=== PATIENT | female | born 1935 | race Caucasian/White ===

== ENCOUNTER 2019-05-09 09:54 | Outpatient (CLI) | payer MEDICARE, SELFPAY ==
--- NOTE | ~2019-05-09 | XR_ITS ---
EXAMINATION: XR abdomen/kub 1V INDICATION: Right kidney stone TECHNIQUE: Supine views of the abdomen were obtained on 2 radiographs. COMPARISON: 11/01/2018 FINDINGS: Bowel contents project over the kidneys limiting sensitivity for renal stones. There is a 1 .3 cm stone or cluster of stones projecting in the lower pole of the right kidney. Stones measuring 7 mm and 8 mm project in the expected location of the right proximal ureter at the level of the L4 beatris tebral body.. No definite left-sided stones are identified. There are phleboliths of the pelvis. The bowel gas pattern is normal. A moderate volume of colonic stool is present. There is moderate lumbar spondylosis and moderate bilateral hip osteoarthritis. IMPRESSION: 1. Right nephrolithiasis with possible stones in the right proximal ureter. Reviewed, dictated and finalized at location A. 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
== END 2019-05-09 09:55 | disposition home or self-care (01) ==
LOC: ANHIMG 09:57
PROVIDERS: PCP Internal Medicine; Visit Provider Urology
DX: N20.0 Calculus of kidney (principal)
CPT/HCPCS: 74018

== ENCOUNTER 2019-05-10 11:47 | Outpatient (CLI) | payer MEDICARE, SELFPAY ==
--- NOTE | ~2019-05-10 | CT_ITS ---
EXAMINATION: CT abdomen pelvis wo con DATE: 05/10/2019 12:10 INDICATION: Right kidney stone. TECHNIQUE: Computed tomography (CT) of the abdomen and pelvis was performed without intravenous contr ast. Automated exposure control and iterative reconstruction technique were employed. The dose-length product was 1075.00 mGy-cm. COMPARISON: CT abdomen and pelvis 03/03/2018 FINDINGS: The visualized portions of the lung bases demonstrate mild atelectasis. No pleural effusion . The heart size is normal. There are coronary artery calcifications. No pericardial effusion. The li beatris demonstrates a nodular surface contour, consistent with cirrhosis. There is a 14 mm cyst in the l iver. There are gallstones in the gallbladder, which is normal in size. The spleen, pancreas, and adr enal glands are normal. There are least 9 stones in right kidney measuring up to 9 mm. There is mild right hydronephrosis. There are two 5 mm stones in proximal right ureter. There are two 3 mm stones i n left kidney. There is an umbilical hernia containing fat. There are no dilated loops of bowel. The appendix is normal. There are no pathologically enlarged lymph nodes. There is no free intraperitonea l fluid. There is lumbar levocurvature and severe spondylosis. IMPRESSION: 1. Two 5 mm stones in proximal right ureter with mild right hydronephrosis. 2. Bilateral nonobstructing kidney stones. 3. Cirrhosis of the liver. Reviewed, dictated and finalized at location A. GRAD RN
== END 2019-05-10 11:48 | disposition home or self-care (01) ==
LOC: ANHIMG 11:49
PROVIDERS: PCP Internal Medicine; Visit Provider Urology
DX: N13.2 Hydronephrosis with renal and ureteral calculous obstruction (principal); K74.60 Unspecified cirrhosis of liver
CPT/HCPCS: 74176

== ENCOUNTER 2019-05-15 14:22 | Outpatient (CLI) | payer MEDICARE, SELFPAY ==
--- NOTE | 2019-05-15 14:29 | ECG_ITS ---
Measurements Intervals [place] Rate: 75 P: 249 [place]: 181 QRS: -42 QRSD: 114 T: 9 QT: 345 QTc: 387 Interpretive Statements SINUS RHYTHM LEFT AXIS DEVIATION INTRAVENTRICULAR CONDUCTION DELAY DELAYED PRECORDIAL R/S TRANSITION VOLTAGE CRITERIA FOR LVH BORDERLINE T WAVE ABNORMALITY- INFERIOR LEADS BASELINE ARTIFACT- I, III, AVR, AVL, AVF, V1-V6 BORDERLINE ECG Electronically Signed On 05-15-2019 14:56:00 RABBLER by Leonel Jimenez D.O.
[2019-05-15 15:23] LABS: Blood Urea Nitrogen 24 mg/dL (7-17); Calcium 10.2 mg/dL (8.4-10.2); Carbon Dioxide 23 mmol/L (22-30); Chloride 106 mmol/L (98-107); Estimated Glomerular Filt Rate 23; Glucose 109 mg/dL (65-105); Potassium 4.4 mmol/L (3.4-5.0); Sodium 139 mmol/L (137-145)
[2019-05-15 15:24] LABS: INR 1.1; Partial Thromboplastin Time 30.2 SECONDS (22.3-36.8); Prothrombin Time 13.9 Seconds (11.1-14.7)
== END 2019-05-15 14:23 | disposition home or self-care (01) ==
LOC: ANHSURGERY 14:29
PROVIDERS: Anesthesiology; PCP Internal Medicine; Visit Provider Urology
DX: N20.0 Calculus of kidney (principal); E11.9 Type 2 diabetes mellitus without complications; I45.9 Conduction disorder, unspecified
CPT/HCPCS: 36415; 80048; 85610; 85730; 93005

== ENCOUNTER 2019-05-19 00:57 | Day surgery (SDC) | payer MEDICARE, SELFPAY ==
[2019-05-15 09:16] VITALS: BMI 36.6
[2019-05-19] VITALS (7 sets, daily range): BP systolic 123–156; BP diastolic 57–81; PULSE 60–81; RESP 13–20; TEMP 36.3–37.2; O2SAT 97–100
--- NOTE | ~2019-05-19 | XR_ITS ---
EXAMINATION: XR retrograde pyelo w/stent RT DATE: 05/19/2019 14:33 INDICATION: Right internal ureteral stent placement TECHNIQUE: Fluoroscopic images from a right internal ureteral stent placement are submitted for laura sinclair 11 seconds of fluoroscopy time. 4 fluoroscopic images. FINDINGS: There is a right double-J internal ureteral stent projecting in expected position, with proximal [place] loop at the level of the renal pelvis. The distal cope loop is not visualized.. IMPRESSION: 1. Right internal ureteral stent placement. Please refer to real-time procedural findings for king moore. Reviewed, dictated and finalized at location B. 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 Right internal ureteral stent placement. Please refer to real-time procedu ral findings for details.
--- NOTE | ~2019-05-19 | XR_ITS ---
EXAMINATION: XR abdomen/kub 1V DATE: 05/19/2019 08:42 INDICATION: Right kidney stone. TECHNIQUE: A supine view of the abdomen on 2 radiographs was obtained. COMPARISON: Abdomen radiographs 05/09/2019, CT abdomen and pelvis 05/10/2019 FINDINGS: There are no dilated loops of bowel. There are phleboliths in the pelvis. There are 5 mm an d 6 mm stones in distal right ureter. There are clusters of stones in right kidney measuring up to 8 mm. IMPRESSION: 1. Stones in the right kidney and distal right ureter. Reviewed, dictated and finalized at location A. 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
--- NOTE | 2019-05-19 09:29 | WPDHPUPDATE1 ---
History and Physical Update Update Date/Time: 05/19/19 09:29 History and Physical has been reviewed, including an updated exam of the patient. There are NO changes in the patient's condition. Risks, benefits, and alternatives have been discussed and questions answered. Patient agrees to proceed with procedure.
[2019-05-19 09:37] LABS: Glucose Point of Care 113 (65-105)
--- NOTE | 2019-05-19 09:45 | SUR.PREOP ---
0940- PT STATED CIPRO ALLERGY IS JUST GI UPSET. SPOKE WITH DR. CHADWICK AND HE STATED TO ORDER LEVOFLOXACIN 500 MG IV FOR ANTIBOTICS.
--- NOTE | 2019-05-19 09:58 | WPDANESEPP ---
Anes - Eval Pre Procedure Procedure: Operation Date: 05/19/19 10:30 Proposed Procedures p Right Ureteral Extracorporeal Shock Wave Lithotripsy, Possible Stent - Ten Juárez MD Date/Time: 05/19/19 09:58 Pre Op Diagnosis: Right Ureteral Stone Patient Data Age: 84 Gender: F Height: 1.63 m Weight: 96 kg Last Vital Signs Temp 37.2 C 05/19/19 09:36 Pulse 78 05/19/19 09:36 Resp 20 05/19/19 09:36 BP 141/81 H 05/19/19 09:36 Pulse Ox 100 05/19/19 09:36 Allergies Allergy/AdvReac Type Severity Reaction Status Date / Time ciprofloxacin Allergy Unknown Hives Verified 05/15/19 09:30 iodine Allergy Unknown hives Verified 05/15/19 09:30 Penicillins Allergy Unknown Hives Verified 05/15/19 09:30 prednisone Allergy Unknown SEE COMMENT Verified 05/15/19 09:30 Sulfa (Sulfonamide Allergy Unknown Hives Verified 05/15/19 09:30 Antibiotics) sulfamethizole Allergy Unknown Hives Verified 05/15/19 09:30 trimethoprim Allergy Unknown Hives Verified 05/15/19 09:30 Contrast Media Allergy Unknown Hives Uncoded 05/15/19 09:30 Home Medications Medication Instructions Recorded Confirmed Type losartan 25 mg tablet 25 mg PO DAILY #90 tablet 02/21/19 05/19/19 Rx metformin 500 mg tablet,extended 500 mg PO .twice a day #180 tablet 03/29/19 05/19/19 Rx release 24hr aspirin [Aspir-81] 81 mg PO DAILY 05/15/19 05/19/19 History coenzyme Q10 [CoQ-10] 200 mg PO DAILY 05/15/19 05/19/19 History glucos sul [id number]-Mn 2 cap PO DAILY 05/15/19 05/19/19 History [Glucosamine Chondroitin] inulin [Fiber Gummies] 2 g PO DAILY 05/15/19 05/19/19 History levothyroxine 50 mcg PO DAILY 05/15/19 05/19/19 History lutein-zeaxanthin 1 cap PO DAILY 05/15/19 05/19/19 History metoprolol succinate [Toprol XL] 50 mg PO DAILY 05/15/19 05/19/19 History montelukast [Singulair] 10 mg PO HS 05/15/19 05/19/19 History multivitamin 1 tablet PO DAILY 05/15/19 05/19/19 History niacin 500 mg PO DAILY 05/15/19 05/19/19 History omeprazole magnesium [Prilosec OTC] 20 mg PO DAILY 05/15/19 05/19/19 History simvastatin [Zocor] 20 mg PO HS 05/15/19 05/19/19 History Laboratory Tests 05/19/19 09:33 POC Capillary Glucose 113 mg/dl H mg/dl (65-105) ECG: Date of Service: 05/15/19 Procedure(s): [place] 12 lead EKG Accession Number(s): [id number] cc: ~ Measurements Intervals [place] Rate: 75 P: 249 [place]: 181 QRS: -42 QRSD: 114 T: 9 QT: 345 QTc: 387 Interpretive Statements SINUS RHYTHM LEFT AXIS DEVIATION INTRAVENTRICULAR CONDUCTION DELAY DELAYED PRECORDIAL R/S TRANSITION VOLTAGE CRITERIA FOR LVH BORDERLINE T WAVE ABNORMALITY- INFERIOR LEADS BASELINE ARTIFACT- I, III, AVR, AVL, AVF, V1-V6 BORDERLINE ECG Electronically Signed On 05-15-2019 14:56:00 BEARING RING ASSEMBLER by Leonel Jimenez D.O. 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
--- NOTE | 2019-05-19 11:03 | WPDANESEPPF ---
Anes - Initial Pre Proc Eval Procedure: Operation Date: 05/19/19 10:30 Proposed Procedures p Right Ureteral Extracorporeal Shock Wave Lithotripsy, Possible Stent - Ten Juárez MD Date/Time: 05/19/19 11:03 Surgeon: Ten Juárez MD Pre Op Diagnosis: Right Ureteral Stone Patient Data Age: 84 Gender: F Height: 5 ft 4 in Weight: 96 kg Last Vital Signs Temp 98.9 F 05/19/19 09:36 Pulse 78 05/19/19 09:36 Resp 20 05/19/19 09:36 BP 141/81 H 05/19/19 09:36 Pulse Ox 100 05/19/19 09:36 Allergies Allergy/AdvReac Type Severity Reaction Status Date / Time ciprofloxacin Allergy Unknown Hives Verified 05/15/19 09:30 iodine Allergy Unknown hives Verified 05/15/19 09:30 Penicillins Allergy Unknown Hives Verified 05/15/19 09:30 prednisone Allergy Unknown SEE COMMENT Verified 05/15/19 09:30 Sulfa (Sulfonamide Allergy Unknown Hives Verified 05/15/19 09:30 Antibiotics) sulfamethizole Allergy Unknown Hives Verified 05/15/19 09:30 trimethoprim Allergy Unknown Hives Verified 05/15/19 09:30 Contrast Media Allergy Unknown Hives Uncoded 05/15/19 09:30 Home Medications Medication Instructions Recorded Confirmed Type losartan 25 mg tablet 25 mg PO DAILY #90 tablet 02/21/19 05/19/19 Rx metformin 500 mg tablet,extended 500 mg PO .twice a day #180 tablet 03/29/19 05/19/19 Rx release 24hr aspirin [Aspir-81] 81 mg PO DAILY 05/15/19 05/19/19 History coenzyme Q10 [CoQ-10] 200 mg PO DAILY 05/15/19 05/19/19 History glucos sul [id number]-Mn 2 cap PO DAILY 05/15/19 05/19/19 History [Glucosamine Chondroitin] inulin [Fiber Gummies] 2 g PO DAILY 05/15/19 05/19/19 History levothyroxine 50 mcg PO DAILY 05/15/19 05/19/19 History lutein-zeaxanthin 1 cap PO DAILY 05/15/19 05/19/19 History metoprolol succinate [Toprol XL] 50 mg PO DAILY 05/15/19 05/19/19 History montelukast [Singulair] 10 mg PO HS 05/15/19 05/19/19 History multivitamin 1 tablet PO DAILY 05/15/19 05/19/19 History niacin 500 mg PO DAILY 05/15/19 05/19/19 History omeprazole magnesium [Prilosec OTC] 20 mg PO DAILY 05/15/19 05/19/19 History simvastatin [Zocor] 20 mg PO HS 05/15/19 05/19/19 History Laboratory Tests 05/19/19 09:33 POC Capillary Glucose 113 mg/dl H mg/dl (65-105) Patient hx anesthesia problems: none Family hx anesthesia problems: none PMFSH Past Medical History Medical History (Updated 05/19/19 @ 10:00 by Lucas Moss MD) Abnormal CT scan, chest Body mass index (bmi) 37.0-37.9, adult (05/03/18) Body mass index (bmi) 38.0-38.9, adult (10/06/18) Body mass index (bmi) 39.0-39.9, adult (09/03/16) CAD (coronary artery disease) 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 Diabetic polyneuropathy associated with type 2 diabetes mellitus Essential (primary) hypertension Foot infection Gastro-esophageal reflux disease with esophagitis Hx of myocardial infarction FEB 2015 Hypercalcemia Hypothyroidism, unspecified Mixed hyperlipidemia Unspecified asthma, uncomplicated Surgical History Surgical History (Updated 05/19/19 @ 10:00 by Lucas Moss MD) History of coronary artery stent placement X2 Family History Family History (Updated 12/23/17 @ 09:07 by DOCTOR UNKNOWN) Father Family history of malignant neoplasm, Onset Age: 77 Family history of blood dyscrasia, Onset Age: 77 Family history of anemia, Onset Age: 77 Patient's father is , Onset Age: 77 Mother Family history of Alzheimer's disease, Onset Age: 82 Family history of heart disease in male family member before age 55, Onset Age: 82 Patient's mother is , Onset Age: 82 Grandparent Cerebrovascular accident, Onset Age: 78 Other Carcinoma of colon Family history of cardiovascular disease Hypertension Social History Social History Smoking status: Never smoker Second hand tobacco smoke exposur
[2019-05-19] MEDS: levoFLOXacin 500 MG/D5W 100 ML 500 MG/100 ML BAG 100 MG IVPB (11:27)
--- NOTE | 2019-05-19 12:00 | PM.PROC ---
Procedure Note - Detailed Date of procedure: 05/19/19 Pre-op diagnosis: Right Ureteral Stone Post-op diagnosis: same Procedure performed: Cystoscopy, right retrograde pyelogram, right ureteroscopy with holmium laser of stone, stone extraction, right ureteral stent placement 4.8 Stateless contour Description of procedure: Patient was taken to the operative suite and correctly identified. Once general anesthesia was obtained she was placed in a dorsal lithotomy position prepped and draped usual sterile fashion. Twenty-two Stateless scope inserted into the bladder. There were no tumors noted. The right ureteral orifice was cannulated with a guidewire. A rigid ureteral scope was inserted. Patient had approximately 3 stone sitting in the distal ureter. There were 2 large to retrieve in 1 piece. Using a 273 micron fiber we fragmented the stone into multiple pieces. These were retrieved and sent for analysis. Pyelogram had been performed to confirm placement of the stent. A 4.8 Stateless stent was then placed with the proximal end coiled in the renal pelvis distal and in the bladder. 2% viscous lidocaine was inserted into the urethra and patient was taken to recovery room stable condition. She will follow up in about a week's time to 10 days with a KUB. Decision will need to be made to what to do with residual stones in the kidney. Anesthesia: GLMA Surgeon: Ten Juárez MD Drains: Yes Packing: No Pathology: yes Complications: No immediate complications Condition: stable Disposition: PACU
[2019-05-19] MEDS: LACTATED RINGERS 1,000 ML 30 ML IV CONT ×2 (12:06)
[2019-05-19 12:17] LABS: Glucose Point of Care 108 (65-105)
== END 2019-05-19 13:40 | disposition home or self-care (01) ==
PROVIDERS: PCP Internal Medicine; Visit Provider Urology
PROC: (CPT 50590; principal; 2019-05-19 10:30)
DX: N20.1 Calculus of ureter (principal); E11.3213 Type 2 diabetes mellitus with mild nonproliferative diabetic retinopathy with macular edema, bilateral; E11.42 Type 2 diabetes mellitus with diabetic polyneuropathy; I10 Essential (primary) hypertension; I25.10 Atherosclerotic heart disease of native coronary artery without angina pectoris; I25.2 Old myocardial infarction; E03.9 Hypothyroidism, unspecified; E78.2 Mixed hyperlipidemia; J45.909 Unspecified asthma, uncomplicated; Z79.82 Long term (current) use of aspirin; Z79.84 Long term (current) use of oral hypoglycemic drugs; E66.9 Obesity, unspecified; Z68.36 Body mass index [BMI] 36.0-36.9, adult; Z95.5 Presence of coronary angioplasty implant and graft
CPT/HCPCS: 52356; 74018; 74420; 82365; 88300; C1758; C1769; C2617; J1100; J1956; J2405; J2704; J3010; J7120; Q9966

== ENCOUNTER 2019-05-29 11:58 | Outpatient (CLI) | payer MEDICARE, SELFPAY ==
--- NOTE | ~2019-05-29 | XR_ITS ---
EXAMINATION: XR abdomen/kub 1V INDICATION: Right-sided kidney stone TECHNIQUE: Supine views of the abdomen were obtained on 2 radiographs. COMPARISON: 05/19/2019 FINDINGS: Previously described stones in the right distal ureter are not definitely identified. There are stable clusters of stones in the right kidney. The right internal ureteral stent is in expected position. There are phleboliths of the pelvis. There are no dilated loops of bowel. Severe lumbar spo ndylosis is noted. IMPRESSION: 1. Interval treatment of stones previously described in the right distal ureter with placement of a r ight internal ureteral stent in expected position. 2. Right nephrolithiasis. Reviewed, dictated and finalized at location A. IMPRESSION: 1. Interval treatment of stones previously described in the right distal ureter with placement of a right internal ureteral stent in expected position. 2. Right nephrolithiasis.
== END 2019-05-29 11:59 | disposition home or self-care (01) ==
LOC: ANHIMG 12:03
PROVIDERS: PCP Internal Medicine; Visit Provider Urology
DX: N20.0 Calculus of kidney (principal)
CPT/HCPCS: 74018

== ENCOUNTER 2019-06-14 08:39 | Day surgery (SDC) | payer MEDICARE, SELFPAY ==
[2019-06-07 15:03] VITALS: BMI 36.6
[2019-06-14] VITALS (7 sets, daily range): BP systolic 96–139; BP diastolic 54–68; PULSE 60–80; RESP 14–16; TEMP 36.3–36.9; O2SAT 97–100; BMI 35.3
--- NOTE | ~2019-06-14 | XR_ITS ---
XR retrograde pyelo w/stent RT DATE: 06/14/2019 15:27 INDICATION: Stent TECHNIQUE: 44.5 seconds fluoroscopy time [id number] [id number] COMPARISON: 05/10/2019 CT abdomen pelvis 05/29/2019 KUB FINDINGS: A right internal urinary stent is present. There are calcifications overlying the lower nisa e of the right kidney. There is blunting of the calyces throughout the right kidney on retrograde pyelography. Please refer to the urologist procedure report for further information. IMPRESSION: Internal urinary stent Reviewed, dictated and finalized at [facility]. Reviewed, dictated and finalized at location B. IMPRESSION: Internal urinary stent
--- NOTE | 2019-06-14 12:53 | WPDANESEPP ---
Anes - Eval Pre Procedure Procedure: Operation Date: 06/14/19 14:00 Proposed Procedures p Cystoscopy, Right Ureteroscopy, Right Retrograde Pyelogram, Right Stone Extraction, Right Stent Exchange - Radha Mcneil MD s Possible Holmium Laser Procedure - Radha Mcneil MD Date/Time: 06/14/19 12:53 Pre Op Diagnosis: Right Ureteral Stone Patient Data Age: 84 Gender: F Height: 1.63 m Weight: 93.4 kg Last Vital Signs Temp 36.3 C L 06/14/19 12:35 Pulse 80 06/14/19 12:35 Resp 16 06/14/19 12:35 BP 139/68 06/14/19 12:35 Pulse Ox 99 06/14/19 12:35 Allergies Allergy/AdvReac Type Severity Reaction Status Date / Time ciprofloxacin Allergy Unknown Hives Verified 06/14/19 12:54 iodine Allergy Unknown hives Verified 06/14/19 12:54 Penicillins Allergy Unknown Hives Verified 06/14/19 12:54 prednisone Allergy Unknown SEE COMMENT Verified 06/14/19 12:54 Sulfa (Sulfonamide Allergy Unknown Hives Verified 06/14/19 12:54 Antibiotics) sulfamethizole Allergy Unknown Hives Verified 06/14/19 12:54 trimethoprim Allergy Unknown Hives Verified 06/14/19 12:54 Contrast Media Allergy Unknown Hives Uncoded 06/14/19 12:54 Home Medications Medication Instructions Recorded Confirmed Type Fiber Gummies 2 g PO DAILY 05/15/19 06/07/19 History Glucosamine Chondroitin 2 cap PO DAILY 05/15/19 06/07/19 History Prilosec OTC 20 mg PO DAILY 05/15/19 06/07/19 History aspirin [Aspir-81] 81 mg PO DAILY 05/15/19 06/07/19 History coenzyme Q10 [CoQ-10] 200 mg PO DAILY 05/15/19 06/07/19 History lutein-zeaxanthin 1 cap PO DAILY 05/15/19 06/07/19 History metoprolol succinate [Toprol XL] 50 mg PO DAILY 05/15/19 06/07/19 History multivitamin 1 tablet PO DAILY 05/15/19 06/07/19 History niacin 500 mg PO DAILY 05/15/19 06/07/19 History simvastatin [Zocor] 20 mg PO HS 05/15/19 06/07/19 History metformin 500 mg PO BID 06/07/19 06/07/19 History levothyroxine 50 mcg tablet 50 mcg PO DAILY #90 tablet 06/12/19 Rx losartan 25 mg tablet 25 mg PO DAILY #90 tablet 06/12/19 Rx montelukast 10 mg tablet 10 mg PO HS #30 tablet 06/12/19 Rx Patient hx anesthesia problems: none Family hx anesthesia problems: none PMFSH Past Medical History Medical History Abnormal CT scan, chest Body mass index (bmi) 37.0-37.9, adult (05/03/18) Body mass index (bmi) 38.0-38.9, adult (10/06/18) Body mass index (bmi) 39.0-39.9, adult (09/03/16) CAD (coronary artery disease) 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 Diabetic polyneuropathy associated with type 2 diabetes mellitus Essential (primary) hypertension Foot infection Gastro-esophageal reflux disease with esophagitis Hx of myocardial infarction FEB 2015 Hypercalcemia Hypothyroidism, unspecified Mixed hyperlipidemia Unspecified asthma, uncomplicated Surgical History Surgical History History of coronary artery stent placement X2 Family History Family History Father Family history of malignant neoplasm, Onset Age: 77 Family history of blood dyscrasia, Onset Age: 77 Family history of anemia, Onset Age: 77 Patient's father is , Onset Age: 77 Mother Family history of Alzheimer's disease, Onset Age: 82 Family history of heart disease in male family member before age 55, Onset Age: 82 Patient's mother is , Onset Age: 82 Grandparent Cerebrovascular accident, Onset Age: 78 Other Carcinoma of colon Family history of cardiovascular disease Hypertension Social History Social History Smoking status: Never smoker Second hand tobacco smoke exposure: No Alcohol intake: current Exam Day of Procedure 06/14/19 12:53
[2019-06-14] MEDS: LACTATED RINGERS 1,000 ML 30 ML IV CONT (13:23)
[2019-06-14 13:50] LABS: Glucose Point of Care 97 (65-105)
--- NOTE | 2019-06-14 14:11 | WPDANESEPPF ---
Anes - Initial Pre Proc Eval Procedure: Operation Date: 06/14/19 14:00 Proposed Procedures p Cystoscopy, Right Ureteroscopy, Right Retrograde Pyelogram, Right Stone Extraction, Right Stent Exchange - Radha Mcneil MD s Possible Holmium Laser Procedure - Radha Mcneil MD Date/Time: 06/14/19 14:11 Surgeon: Radha Mcneil MD Pre Op Diagnosis: Right Ureteral Stone Patient Data Age: 84 Gender: F Height: 5 ft 4 in Weight: 93.4 kg Last Vital Signs Temp 36.3 C L 06/14/19 12:35 Pulse 80 06/14/19 12:35 Resp 16 06/14/19 12:35 BP 139/68 06/14/19 12:35 Pulse Ox 99 06/14/19 12:35 Allergies Allergy/AdvReac Type Severity Reaction Status Date / Time ciprofloxacin Allergy Unknown Diarrhea Verified 06/14/19 13:24 iodine Allergy Unknown hives Verified 06/14/19 12:54 Penicillins Allergy Unknown Hives Verified 06/14/19 12:54 prednisone Allergy Unknown SEE COMMENT Verified 06/14/19 12:54 Sulfa (Sulfonamide Allergy Unknown Hives Verified 06/14/19 12:54 Antibiotics) sulfamethizole Allergy Unknown Hives Verified 06/14/19 12:54 trimethoprim Allergy Unknown Hives Verified 06/14/19 12:54 Contrast Media Allergy Unknown Hives Uncoded 06/14/19 12:54 Home Medications Medication Instructions Recorded Confirmed Type Fiber Gummies 2 g PO DAILY 05/15/19 06/14/19 History Glucosamine Chondroitin 2 cap PO DAILY 05/15/19 06/14/19 History Prilosec OTC 20 mg PO DAILY 05/15/19 06/14/19 History aspirin [Aspir-81] 81 mg PO DAILY 05/15/19 06/14/19 History coenzyme Q10 [CoQ-10] 200 mg PO DAILY 05/15/19 06/14/19 History lutein-zeaxanthin 1 cap PO DAILY 05/15/19 06/14/19 History metoprolol succinate [Toprol XL] 50 mg PO DAILY 05/15/19 06/14/19 History multivitamin 1 tablet PO DAILY 05/15/19 06/14/19 History niacin 500 mg PO DAILY 05/15/19 06/14/19 History simvastatin [Zocor] 20 mg PO HS 05/15/19 06/14/19 History metformin 500 mg PO BID 06/07/19 06/14/19 History levothyroxine 50 mcg tablet 50 mcg PO DAILY #90 tablet 06/12/19 06/14/19 Rx losartan 25 mg tablet 25 mg PO DAILY #90 tablet 06/12/19 06/14/19 Rx montelukast 10 mg tablet 10 mg PO HS #30 tablet 06/12/19 06/14/19 Rx Laboratory Tests 06/14/19 13:46 POC Capillary Glucose 97 mg/dl mg/dl (65-105) Patient hx anesthesia problems: none Family hx anesthesia problems: none PMFSH Past Medical History Medical History Abnormal CT scan, chest Body mass index (bmi) 37.0-37.9, adult (05/03/18) Body mass index (bmi) 38.0-38.9, adult (10/06/18) Body mass index (bmi) 39.0-39.9, adult (09/03/16) CAD (coronary artery disease) 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 Diabetic polyneuropathy associated with type 2 diabetes mellitus Essential (primary) hypertension Foot infection Gastro-esophageal reflux disease with esophagitis Hx of myocardial infarction FEB 2015 Hypercalcemia Hypothyroidism, unspecified Mixed hyperlipidemia Unspecified asthma, uncomplicated Surgical History Surgical History History of coronary artery stent placement X2 Family History Family History Father Family history of malignant neoplasm, Onset Age: 77 Family history of blood dyscrasia, Onset Age: 77 Family history of anemia, Onset Age: 77 Patient's father is , Onset Age: 77 Mother Family history of Alzheimer's disease, Onset Age: 82 Family history of heart disease in male family member before age 55, Onset Age: 82 Patient's mother is , Onset Age: 82 Grandparent Cerebrovascular accident, Onset Age: 78 Other Carcinoma of colon Family history of cardiovascular disease Hypertension Social History Social History Smoking status: Never smoke
[2019-06-14] MEDS: levoFLOXacin 500 MG/D5W 100 ML 500 MG/100 ML BAG 100 MG IVPB (14:34)
[2019-06-14] MEDS: LIDOCAINE HCL 2% GEL UROJET 10 ML PKG MUCOUS MEM (14:42)
--- NOTE | 2019-06-14 16:23 | OP_ITS ---
DATE OF PROCEDURE: 06/14/2019 PREOPERATIVE DIAGNOSIS: Right renal stones. POSTOPERATIVE DIAGNOSIS: Right renal stones. PROCEDURE PERFORMED: 1. Cystoscopy. 2. Right ureteroscopy. 3. Laser lithotripsy. 4. Stone extraction. 5. Retrograde pyelogram. 6. Right ureteral stent exchange. INDICATION FOR PROCEDURE: The patient is a very pleasant lady. She has a known history of stone formation. She most recently underwent ureteroscopy for distal ureteral stones on 05/19/2019 at which time, ureteral stones were removed and a ureteral stent was placed. The patient has residual renal stones and presents today for definitive stone management for her right-sided renal stones. The risks, benefits, and alternatives were discussed with the patient and patient agrees to proceed with the procedure today. DESCRIPTION OF OPERATION: Informed consent was obtained. The patient was taken to the operating room and given preoperative IV antibiotics, induced anesthesia, and the patient was prepped and draped in normal sterile fashion. A 22-[place] cystoscope was inserted into the urethra into the bladder. We inspected the bladder. There were no mucosal abnormalities except for the right ureteral stent, which was grasped and pulled on to the urethral meatus. We then dilated with an 8-10 coaxial dilator over the wire. We then advanced a flexible ureteroscope. There were no stones or strictures along the course of the ureter. We then performed a retrograde pyelogram on the kidney inspecting each calyx. There were multiple stones in a partially narrowed mid-pole calyx. There was an area in the lower pole that appeared to have stone on the filter operator film; however, these were submucosal calcifications as the stones were not visible with the scope in the lower pole calyx. We then focused on the mid pole stones. We were able to advance the ureteroscope into the midpole calyx. These stones were then fragmented using dusting settings into very small pieces, all less than 1 mm in size. Using the ZeroTip basket, multiple fragments were then grasped and removed. We then felt all stone fragments were very small and would easily pass and therefore we elected to cease additional stone removal. We inspected each calyx again, and there were no residual stones. We inspected the ureter. There were no strictures or stones seen. There was no extravasation noted. Over the wire, I then placed a 4.8 [place] variable length stent with a curl in renal pelvis and curl in the bladder. The bladder was emptied. 10 cc lidocaine were instilled. The patient was awakened, taken to recovery room in stable condition. FLUIDS: Per anesthesia. COMPLICATION: None. ESTIMATED BLOOD LOSS: Minimal. FOLLOWUP: The patient will follow up in the office in 1-2 weeks for ureteral stent removal. D I MT: Calderon
== END 2019-06-14 17:04 | disposition home or self-care (01) ==
PROVIDERS: PCP Internal Medicine; Visit Provider Urology
PROC: (CPT 52352; principal; 2019-06-14 14:00)
PROC: (CPT 52356; 2019-06-14 14:00)
DX: N20.0 Calculus of kidney (principal); I10 Essential (primary) hypertension; E11.3213 Type 2 diabetes mellitus with mild nonproliferative diabetic retinopathy with macular edema, bilateral; E11.42 Type 2 diabetes mellitus with diabetic polyneuropathy; I25.2 Old myocardial infarction; J45.909 Unspecified asthma, uncomplicated; I25.10 Atherosclerotic heart disease of native coronary artery without angina pectoris; K21.9 Gastro-esophageal reflux disease without esophagitis; E03.9 Hypothyroidism, unspecified; E78.2 Mixed hyperlipidemia; Z79.84 Long term (current) use of oral hypoglycemic drugs; Z79.82 Long term (current) use of aspirin; Z95.5 Presence of coronary angioplasty implant and graft; E66.9 Obesity, unspecified; Z68.35 Body mass index [BMI] 35.0-35.9, adult
CPT/HCPCS: 52356; 74420; 82365; 88300; A9270; C1769; C2617; J0131; J1100; J1956; J2405; J2704; J3010; J7120; Q9966

== ENCOUNTER 2019-08-11 08:47 | Outpatient (CLI) | payer MEDICARE, SELFPAY ==
--- NOTE | ~2019-08-11 | MM_ITS ---
EXAMINATION: MM screening juan BI w [place] HISTORY: Screening mammogram, history of right breast cancer TECHNIQUE: Craniocaudal and mediolateral oblique 3-D tomosynthesis images were obtained and synthetic 2-D images were generated. CAD analysis was submitted and interpreted. COMPARISON: 08/09/2018, 08/05/2017, 09/21/2016, 08/03/2016 BREAST PARENCHYMAL COMPOSITION: There are scattered areas of fibroglandular density. FINDINGS: There are stable lumpectomy changes in the right breast. There is no evidence of suspicious mass, calcification, or architectural distortion to suggest malignancy in either breast. There has b een no suspicious interval change. IMPRESSION: 1. No mammographic evidence of malignancy. 2. Recommend routine screening mammography while the patient remains in good health. BI-RADS Category 2: Benign finding(s). Reviewed, dictated and finalized at location A. IMPRESSION: 1. No mammographic evidence of malignancy. 2. Recommend routine screening mammography while the patient remains in good he alth. BI-RADS Category 2: Benign finding(s).
== END 2019-08-11 08:48 | disposition home or self-care (01) ==
PROVIDERS: PCP Internal Medicine; Visit Provider Internal Medicine
DX: Z12.31 Encounter for screening mammogram for malignant neoplasm of breast (principal)
CPT/HCPCS: 77063; 77067

== ENCOUNTER 2019-11-14 08:14 | Outpatient (CLI) | payer MEDICARE, SELFPAY ==
--- NOTE | ~2019-11-14 | XR_ITS ---
EXAMINATION: XR abdomen/kub 1V INDICATION: History of kidney stones TECHNIQUE: Supine views of the abdomen were obtained on 2 radiographs. COMPARISON: 05/29/2019 FINDINGS: The right internal ureteral stent has been removed. There is a stable 8 mm cluster of stone s in the right kidney lower pole. No stones are identified along the expected course of the right ure ter on the bladder. Pelvic phleboliths are noted. The bowel gas pattern is normal. There is moderate to severe lumbar spondylosis. The visualized lung bases are clear. IMPRESSION: 1. Stable right nephrolithiasis. 2. Interval right internal ureteral stent removal without evidence of stones along the expected cours e of the ureter or within the bladder. Reviewed, dictated and finalized at location A. IMPRESSION: 1. Stable right nephrolithiasis. 2. Interval right internal ureteral stent removal without evidence of stones al jayla the expected course of the ureter or within the bladder.
== END 2019-11-14 08:15 | disposition home or self-care (01) ==
LOC: ANHIMG 08:20
PROVIDERS: PCP Internal Medicine; Visit Provider Urology
DX: Z87.442 Personal history of urinary calculi (principal); N20.0 Calculus of kidney; Z98.890 Other specified postprocedural states
CPT/HCPCS: 74018

== ENCOUNTER 2020-04-18 15:27 | Outpatient (CLI) | payer MEDICARE, SELFPAY ==
--- NOTE | ~2020-04-18 | XR_ITS ---
XR chest 2V 04/18/2020 15:49 Indication: Unspecified asthma. Dyspnea. Procedure: PA and lateral views of the chest Comparison: 08/12/2016 Findings: Coarse interstitial infiltrates of the lower lung zones is stable, likely fibrosis. There a re surgical clips in the right axilla. No acute focal pneumonia, edema or effusion. Heart size normal . No acute osseous abnormality. Mild thoracic spondylosis. Impression: 1: No acute cardiopulmonary disease. 2: Chronic interstitial infiltrates of the lower lung zones, likely fibrosis. Reviewed, dictated and finalized at location A. O AND ORGAN REFINISHER Impression: 1: No acute cardiopulmonary disease. 2: Chronic interstitial infiltrates of the lower lung zones, likely fibrosis.
== END 2020-04-18 15:28 | disposition home or self-care (01) ==
PROVIDERS: PCP Internal Medicine; Visit Provider Internal Medicine
DX: J45.909 Unspecified asthma, uncomplicated (principal); R91.8 Other nonspecific abnormal finding of lung field
CPT/HCPCS: 71046

== ENCOUNTER 2020-08-14 09:17 | Outpatient (CLI) | payer MEDICARE, SELFPAY ==
--- NOTE | ~2020-08-14 | MM_ITS ---
EXAMINATION: MM screening juan BI w [place] HISTORY: Screening TECHNIQUE: Craniocaudal and mediolateral oblique 3-D tomosynthesis images were obtained and synthetic 2-D images were generated. CAD analysis was submitted and interpreted. COMPARISON: Comparison to multiple prior studies sequentially, with oldest reviewed study dated 08/01. BREAST PARENCHYMAL COMPOSITION: There are scattered areas of fibroglandular density. FINDINGS: Stable architectural distortion of the right breast, consistent with previous lumpectomy. T here is no evidence of suspicious mass, calcification, or architectural distortion to suggest maligna ncy in either breast. There has been no suspicious interval change. IMPRESSION: 1. No mammographic evidence of malignancy. 2. Recommend routine screening mammography in one year. BI-RADS Category 2: Benign finding(s). Reviewed, dictated and finalized at location A.
== END 2020-08-14 09:18 | disposition home or self-care (01) ==
PROVIDERS: PCP Family Medicine; Visit Provider Family Medicine
DX: Z12.31 Encounter for screening mammogram for malignant neoplasm of breast (principal)
CPT/HCPCS: 77063; 77067

== ENCOUNTER 2021-05-18 12:14 | Outpatient (CLI) | payer MEDICARE, SELFPAY ==
--- NOTE | ~2021-05-18 | XR_ITS ---
EXAMINATION: CT abdomen pelvis wo con, XR abdomen/kub 1V DATE: 05/18/2021 13:19 (accession [id number]), 05/18/2021 12:46 (accession [id number]) INDICATION: History of kidney stones. TECHNIQUE: Computed tomography (CT) of the abdomen and pelvis was performed without intravenous contr ast. The dose-length product was 949.26 mGy-cm. Automated exposure control and iterative reconstructi on technique were employed. KUB. COMPARISON: CT dated 05/10/2019. FINDINGS: Lung bases are unremarkable. Heart size is normal. No significant pleural or pericardial ef fusion. There is atherosclerosis of the aorta, mesenteric vessels including the splenic artery. Gallb ladder is present. The pancreas, adrenal glands and left kidney are unremarkable. There are multiple nonobstructing right renal stones. The right renal stones are visualized on the KUB. Bowel pattern is nonobstructive. There is a moderate-sized fat-containing umbilical hernia. No evidence for aortic an eurysm or lymphadenopathy. No hydronephrosis. There is moderate lumbar spondylosis with levocurvature . IMPRESSION: 1. Nonobstructing right nephrolithiasis. 2: Cirrhosis. Reviewed, dictated and finalized at location A. ERY GUMMER IMPRESSION: 1. Nonobstructing right nephrolithiasis. 2: Cirrhosis.
== END 2021-05-18 12:15 | disposition home or self-care (01) ==
LOC: ANHIMG 12:17
PROVIDERS: PCP Nurse Practitioner Family; Visit Provider Urology
DX: Z87.442 Personal history of urinary calculi (principal); K74.69 Other cirrhosis of liver; N20.0 Calculus of kidney
CPT/HCPCS: 74018; 74176

== ENCOUNTER 2021-06-02 10:06 | Emergency (ER) | payer MEDICARE, SELFPAY ==
--- NOTE | 2021-06-02 10:16 | ED.LOWEXIN ---
HPI - Extremity Injury (Lower) General Chief Complaint: Extremity Injury, Lower Stated Complaint: Rt Leg Pain Time Seen by Provider: 06/02/21 10:20 Source: patient, RN notes reviewed and old records reviewed Mode of arrival: ambulatory Limitations: no limitations History of Present Illness HPI Narrative: 86-year-old female who [facility] with complaints of right foot pain with excoriated yellowish tissue to the bottom of her foot and between her toes which she has been treating with fungal ointment and is on antibiotic from her PCP. Patient states that she has been dealing with her foot wound since November with it getting a little better with antibiotic and then getting worse.Patient reports that pain to her bottom of her foot is acute and she is hardly able to get around due to the pain despite some neuropathy in her feet. Patient also has swelling of her right foot and pretibial swelling also. Patient has appointment with Dr Velasquez at 0915 tomorrow for follow up and further evaluation. MD complaint: other Injury: Right: foot Type of Injury: other (excoriated red yellowish tissue to bottom of right foot) Exacerbating factors: weight bearing Related Data Home Medications Medication Instructions Recorded Confirmed Fiber Gummies 2 g PO DAILY 05/15/19 06/02/21 Glucosamine Chondroitin 2 cap PO DAILY 05/15/19 06/02/21 aspirin [Aspir-81] 81 mg PO DAILY 05/15/19 06/02/21 coenzyme Q10 [CoQ-10] 200 mg PO DAILY 05/15/19 06/02/21 lutein-zeaxanthin 1 cap PO DAILY 05/15/19 06/02/21 metoprolol succinate [Toprol XL] 50 mg PO DAILY 05/15/19 06/02/21 multivitamin 1 tablet PO DAILY 05/15/19 06/02/21 niacin 500 mg PO DAILY 05/15/19 06/02/21 omeprazole magnesium [Prilosec OTC] 20 mg PO DAILY 05/15/19 06/02/21 simvastatin [Zocor] 20 mg PO HS 05/15/19 06/02/21 valsartan 40 mg tablet 40 mg PO DAILY tablet 10/18/19 06/02/21 Allergies Allergy/AdvReac Type Severity Reaction Status Date / Time ciprofloxacin Allergy Unknown Diarrhea Verified 06/02/21 10:11 iodine Allergy Unknown hives Verified 06/02/21 10:11 Penicillins Allergy Unknown Hives Verified 06/02/21 10:11 prednisone Allergy Unknown SEE COMMENT Verified 06/02/21 10:11 Sulfa (Sulfonamide Allergy Unknown Hives Verified 06/02/21 10:11 Antibiotics) sulfamethizole Allergy Unknown Hives Verified 06/02/21 10:11 trimethoprim Allergy Unknown Hives Verified 06/02/21 10:11 Contrast Media Allergy Unknown Hives Uncoded 06/02/21 10:11 Review of Systems Review of Systems: CONSTITUTIONAL: Denies fever, chills, or sweats. EYES: Denies visual changes, redness, or discharge. ENT: Denies rhinorrhea, congestion, sore throat, or otalgia. CARDIOVASCULAR: Denies chest pain, palpitations, positive edema pretibial and pedal edema right foot and ankle region. RESPIRATORY: Denies cough or dyspnea. GASTROINTESTINAL: Denies abdominal pain, nausea, vomiting, or diarrhea. GENITOURINARY: Denies dysuria or hematuria. SKIN: Positive for excoriated yellowish sluffing skin to the bottom of right foot with yellowish tissues around toes with edema MUSCULOSKELETAL: Denies back pain, joint pain, or myalgia. NEUROLOGIC: Denies headache, numbness, or weakness. PSYCHIATRIC: Denies anxiety or depression. 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
[2021-06-02 10:18] VITALS: BP 141/66; PULSE 93; RESP 18; TEMP 36.8; O2SAT 97
== END 2021-06-02 10:55 | disposition home or self-care (01) ==
PROVIDERS: Emergency Provider Registered Nurse; PCP Nurse Practitioner Family
DX: B35.3 Tinea pedis (principal); J45.909 Unspecified asthma, uncomplicated; I25.10 Atherosclerotic heart disease of native coronary artery without angina pectoris; E11.42 Type 2 diabetes mellitus with diabetic polyneuropathy; E11.3213 Type 2 diabetes mellitus with mild nonproliferative diabetic retinopathy with macular edema, bilateral; I25.2 Old myocardial infarction; E03.9 Hypothyroidism, unspecified; E78.2 Mixed hyperlipidemia; Z95.5 Presence of coronary angioplasty implant and graft; Z90.711 Acquired absence of uterus with remaining cervical stump; Z98.41 Cataract extraction status, right eye
CPT/HCPCS: 99213; G0463

== ENCOUNTER 2021-06-03 13:11 | Emergency (ER) | payer MEDICARE, SELFPAY ==
--- NOTE | ~2021-06-03 | US_ITS ---
EXAMINATION: US art doppler w press LE BI DATE: 06/03/2021 15:04 INDICATION: Diminished pulses in the lower limbs. TECHNIQUE: Segmental pressures and plethysmographic and Doppler waveforms of the brachial and lower e xtremity arteries were obtained. COMPARISON: None. FINDINGS: Left brachial artery pressure of 168 mm Hg. The right brachial pressure unable to be obtained due to prior breast cancer and lumpectomy. The right and left high-thigh pressure indices are unable to be o btained due to inability to occlude the vessels throughout the left lower limb and in the right lower limb above the level of the ankle. The right ankle-brachial index (NAIN) is 1.04 (normal >= 0.9-1). The right great toe-brachial index (T BI) is 0.54 (normal >= 0.6-0.8). The right lower extremity segmental pressure gradients are increased between the right dorsalis pedis and posterior tibial arteries (normal gradients <= 20-30 mmHg betwe en adjacent levels on the same leg or the same levels on the two legs). Arterial waveforms are biphas ic with brisk systolic upstrokes throughout the arteries of the right lower limb.. The left NAIN is unable to be obtained due to inability to occlude the vessels at the left ankle. The left TBI is 0.79. Arterial waveforms are biphasic with brisk systolic upstrokes throughout the arteri es of the left lower limb.. IMPRESSION: 1. Mild arterial occlusive disease to the right lower limb with normal NAIN but mildly decreased right TBI. 2. No significant arterial occlusive disease to the left lower limb with normal left TBI. Reviewed, dictated and finalized at location A.
--- NOTE | ~2021-06-03 | CT_ITS ---
EXAMINATION: CT LE RT wo con DATE: 06/03/2021 15:28 INDICATION: Right lower limb cellulitis with edema and erythema. TECHNIQUE: High resolution computed tomography (CT) of the right lower leg from the knee joint throug h the foot was performed without intravenous contrast. Additional sagittal and coronal reconstruction s were performed. Automated exposure control and iterative reconstruction technique were employed. Th e dose-length product was 1033.24 mGy-cm. COMPARISON: None FINDINGS: Osteoarthritis with severe joint space narrowing the medial compartment of the right knee with second bertin mild genu varus. Bone alignment is otherwise normal. No fracture. Additional polyarticular osteoa rthritis severe at the second and third tarsal metatarsal joints, moderate severity at the remaining tarsal metatarsal joints, navicular cuneiform and first metatarsophalangeal joints and mild at the le ft ankle and multiple joints in the mid and forefoot. No cortical erosions or periosteal reaction to suggest osteomyelitis. There is diffuse skin thickening with dense subcutaneous edema and numerous dystrophic calcifications in the subcutaneous fat beginning at the proximal calf and extending to the level of the ankle with additional subcutaneous edema over the dorsum of the foot. Nonspecific 1.2 x 0.9 cm relatively low de nsity nodule in the subcutaneous tissues at the posterior aspect of the proximal calf 5 cm distal to the tibiotalar knee joint line. No soft tissue gas. No significant stranding or evident abscess in th e deeper muscular compartments of the calf. Extensive vascular calcifications remain in the popliteal artery and extending through the vessels of the right calf into the foot. IMPRESSION: 1. Extensive cellulitis from the proximal calf over the dorsum of the foot with skin thickening and d ense subcutaneous edema but without evident gas or involvement of the deeper muscular compartments to suggest necrotizing fasciitis. 2. 12 x 9 mm low-density nodule in the posterior subcutaneous fat of the more proximal uppermost calf but without significant surrounding inflammatory stranding and favor reactive lymph node over absces s. No other lesions suspicious for abscesses identified. 3. Extensive dystrophic calcifications in the subcutaneous fat the mid to distal calf with differenti al including venous insufficiency, scleroderma, tumoral calcinosis and end-stage renal disease. 4. 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 Reviewed, dictated and finalized at location A. IMPRESSION: 1. Extensive cellulitis from the proximal calf over the dorsum of the foot with skin thickening and dense subcutaneous edema but without evident gas or involv ement of the deeper muscular compartments to suggest necrotizing fasciitis. 2. 12 x 9 mm low-density nodule in the posterior subcutaneous fat of the more p roximal uppermost calf but without significant surrounding inflammatory strandi ng and favor reactive lymph node over abscess. No other lesions suspicious for abscesses identified. 3. Extensive dystrophic calcifications in the subcutaneous fat the mid to dista l calf with differential including venous insufficiency, scleroderma, tumoral c alcinosis and end-stage renal disease. 4. Moderate to severe polyarticular osteoarthritis at the right knee through th e foot as detailed above.
[2021-06-03 13:17] VITALS: BP 161/72; PULSE 82; RESP 14; TEMP 36.6; O2SAT 99
--- NOTE | 2021-06-03 14:21 | PC.NURSE ---
Patient to ultrasound. States the test will take about an hour.
--- NOTE | 2021-06-03 14:49 | PC.NURSE ---
Patient still in radiology.
--- NOTE | 2021-06-03 14:59 | ED.SKABFB ---
HPI - Skin/Abscess/Foreign Bdy General Chief complaint: Skin/Abscess/Foreign Body Stated complaint: Cellulitus R leg Time Seen by Provider: 06/03/21 13:41 Source: patient History of Present Illness HPI narrative: Patient presents with concern for an infection in her right leg. Reports she has been having problems with her right lower extremity since a few months ago. She has been evaluated by podiatry since that time. She has been on multiple antibiotics with intermittent relief of her symptoms she saw her physician's assistant today however symptoms appear to be worsening so she came to the ER for further evaluation. Reports history of chronic kidney disease and neuropathy to her legs. She was recently seen in urgent care and is currently taking fluconazole she is currently on erythromycin prescribed by her physician's assistant. She denies any fevers cough or congestion. Reports her pain in that foot is gotten progressively worse and is causing difficulty with ambulation. Her pain is achy, constant, worse with ambulation, radiates up her leg she also feels the redness is spreading up her leg Related Data Home Medications Medication Instructions Recorded Confirmed Fiber Gummies 2 g PO DAILY 05/15/19 06/02/21 Glucosamine Chondroitin 2 cap PO DAILY 05/15/19 06/02/21 aspirin [Aspir-81] 81 mg PO DAILY 05/15/19 06/02/21 coenzyme Q10 [CoQ-10] 200 mg PO DAILY 05/15/19 06/02/21 lutein-zeaxanthin 1 cap PO DAILY 05/15/19 06/02/21 metoprolol succinate [Toprol XL] 50 mg PO DAILY 05/15/19 06/02/21 multivitamin 1 tablet PO DAILY 05/15/19 06/02/21 niacin 500 mg PO DAILY 05/15/19 06/02/21 omeprazole magnesium [Prilosec OTC] 20 mg PO DAILY 05/15/19 06/02/21 simvastatin [Zocor] 20 mg PO HS 05/15/19 06/02/21 valsartan 40 mg tablet 40 mg PO DAILY tablet 10/18/19 06/02/21 Allergies Allergy/AdvReac Type Severity Reaction Status Date / Time ciprofloxacin Allergy Unknown Diarrhea Verified 06/02/21 10:11 iodine Allergy Unknown hives Verified 06/02/21 10:11 Penicillins Allergy Unknown Hives Verified 06/02/21 10:11 prednisone Allergy Unknown SEE COMMENT Verified 06/02/21 10:11 Sulfa (Sulfonamide Allergy Unknown Hives Verified 06/02/21 10:11 Antibiotics) sulfamethizole Allergy Unknown Hives Verified 06/02/21 10:11 trimethoprim Allergy Unknown Hives Verified 06/02/21 10:11 Contrast Media Allergy Unknown Hives Uncoded 06/02/21 10:11 Review of Systems Review of Systems: CONSTITUTIONAL: Denies fever, chills, or sweats. EYES: Denies visual changes, redness, or discharge. ENT: Denies rhinorrhea, congestion, sore throat, or otalgia. CARDIOVASCULAR: Denies chest pain, palpitations, or edema. RESPIRATORY: Denies cough or dyspnea. GASTROINTESTINAL: Denies abdominal pain, nausea, vomiting, or diarrhea. GENITOURINARY: Denies dysuria or hematuria. SKIN: Denies rash or itching. MUSCULOSKELETAL: Denies back pain, , or myalgia. NEUROLOGIC: Denies headache, numbness, dizziness, or weakness. PSYCHIATRIC: Denies anxiety or depression. 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
[2021-06-03 15:32] LABS: Basophils Percent Auto 0.3 % (0.2-1.2); Eosinophils Absolute Auto 0.1 K/mm3 (0-0.3); Eosinophils Percent Auto 1.7 % (0-4.4); Hematocrit 37.6 % (37.0-47.0); Hemoglobin 12.1 g/dL (12.0-15.0); Immature Granulocyte Absolute 0.01 K/mm3 (0.00-0.031); Immature Granulocyte Percent A 0.1 % (0-0.5); Lymphocytes Absolute Auto 1.47 K/mm3 (0.9-3.2); Lymphocytes Percent Auto 19.1 % (18.3-44.2); Mean Corpuscular HGB Conc 32.2 g/dl (32-36); Mean Corpuscular Hemoglobin 31.9 pg (26-34); Mean Corpuscular Volume 99.2 fl (80-100); Mean Platelet Volume 11.7 fl (7.4-10.4); Monocytes Absolute Auto 0.5 K/mm3 (0.1-0.6); Monocytes Percent Auto 6.8 % (2.6-8.5); Neutrophils Absolute Auto 5.5 K/mm3 (1.3-6.7); Platelet Count Result 152 k/mm3 (150-375); Red Blood Count 3.79 M/mm3 (4.2-5.4); Red Cell Distribution Width 14.6 % (11.5-14.5); White Blood Count 7.7 K/mm3 (4.5-10.0)
[2021-06-03 15:41] LABS: Lactic Acid Reflex 1.1 mmol/L (0.7-2.1)
[2021-06-03 15:51] LABS: Creatine Kinase 54 U/L (30-135)
[2021-06-03 16:48] LABS: Erythrocyte Sedimentation Rate 29 mm/hr (0-20)
[2021-06-03 16:55] LABS: Alanine Aminotransferase 19 U/L (4-35); Albumin Level 4.6 g/dL (3.5-5.1); Alkaline Phosphatase 76 U/L (38-126); Anion Gap 12 mmol/L (8-16); Aspartate Amino Transferase 18 U/L (14-36); Bilirubin,Total 0.5 mg/dL (0.2-1.3); Blood Urea Nitrogen 20 mg/dL (7-17); CRP 1.3 mg/dL (<1.0); Calcium 9.8 mg/dL (8.4-10.2); Carbon Dioxide 20 mmol/L (22-30); Chloride 107 mmol/L (98-107); Estimated CRCL calculation 27 ml/min; Estimated Glomerular Filt Rate 31; Glucose 112 mg/dL (65-110); Potassium 4.4 mmol/L (3.4-5.0); Sodium 139 mmol/L (137-145)
[2021-06-03 17:46] VITALS: BP 155/70; PULSE 78; RESP 19; O2SAT 97
== END 2021-06-03 17:47 | disposition home or self-care (01) ==
PROVIDERS: Emergency Provider Emergency Medicine; PCP Nurse Practitioner Family
DX: L03.115 Cellulitis of right lower limb (principal); J45.909 Unspecified asthma, uncomplicated; I25.10 Atherosclerotic heart disease of native coronary artery without angina pectoris; E11.22 Type 2 diabetes mellitus with diabetic chronic kidney disease; I12.9 Hypertensive chronic kidney disease with stage 1 through stage 4 chronic kidney disease, or unspecified chronic kidney disease; N18.9 Chronic kidney disease, unspecified; E11.42 Type 2 diabetes mellitus with diabetic polyneuropathy; Z79.82 Long term (current) use of aspirin; E03.9 Hypothyroidism, unspecified; K21.00 Gastro-esophageal reflux disease with esophagitis, without bleeding; I25.2 Old myocardial infarction; E78.2 Mixed hyperlipidemia; I70.221 Atherosclerosis of native arteries of extremities with rest pain, right leg; Z95.5 Presence of coronary angioplasty implant and graft; Z98.41 Cataract extraction status, right eye; Z86.2 Personal history of diseases of the blood and blood-forming organs and certain disorders involving the immune mechanism; R22.41 Localized swelling, mass and lump, right lower limb; M17.11 Unilateral primary osteoarthritis, right knee
CPT/HCPCS: 36415; 73700; 80053; 82550; 83605; 85025; 85652; 86140; 87040; 93923; 99284

== ENCOUNTER 2021-09-03 08:16 | Outpatient (CLI) | payer MEDICARE, SELFPAY ==
--- NOTE | ~2021-09-03 | MM_ITS ---
EXAMINATION: MM screening juan BI w [place] HISTORY: Screening mammogram; history of partial right mastectomy in 1998 for breast cancer TECHNIQUE: Craniocaudal and mediolateral oblique 3-D tomosynthesis images were obtained and synthetic 2-D images were generated. CAD analysis was submitted and interpreted. COMPARISON: 08/14/2020, 08/11/2019, 08/09/2018 bilateral screening mammogram examinations BREAST PARENCHYMAL COMPOSITION: There are scattered areas of fibroglandular density. FINDINGS: Stable postoperative scarring including architectural distortion and overlying retraction i n the inner aspect of the upper outer right breast.. Numerous benign calcifications are again noted. There is no evidence of suspicious mass, calcificatio n, or new architectural distortion to suggest malignancy in either breast. There has been no suspicio us interval change. IMPRESSION: 1. Status post right partial mastectomy for breast cancer. No mammographic evidence of malignancy. 2. Recommend routine screening mammography in one year. BI-RADS Category 2: Benign finding(s). Reviewed, dictated and finalized at location A. IMPRESSION: 1. Status post right partial mastectomy for breast cancer. No mammographic evid ence of malignancy. 2. Recommend routine screening mammography in one year. BI-RADS Category 2: Benign finding(s).
== END 2021-09-03 08:17 | disposition home or self-care (01) ==
PROVIDERS: PCP Nurse Practitioner Family; Visit Provider Nurse Practitioner Family
DX: Z12.31 Encounter for screening mammogram for malignant neoplasm of breast (principal)
CPT/HCPCS: 77063; 77067

== ENCOUNTER 2021-10-07 09:00 | Outpatient (RCR) | payer MEDICARE, SELFPAY ==
--- NOTE | 2021-09-05 13:55 | PTOPEVAL ---
PHYSICAL THERAPY INITIAL EVALUATION. Thank you for referring Rosalva Angel to [facility].? The patient is scheduled to be seen for therapy? 2x/week for 4 weeks. Please review, sign, date and return this plan of care AZUL. I agree with and certify that the following plan of care is medically necessary. Referring Physician Date Attending Provider: Mary Mercado NP *PT Outpatient Evaluation Start: 09/05/21 Evaluation Information Diagnosis R knee pain Onset 1 year Subjective Information Pt states she has had R knee Query Text:As Reported By Patient/ pain for about a year, while Family working on her knee she found out she had infections in david feet. She states this is not resolved but after months of limping d/t foot pain she thinks has made her knee pain worse. She states her foot pain is still a limiting factor for her mobility. Pain Assessment Right Knee(s) Reported Pain Level 0 Pain Description Aching Lowest Pain Intensity 0 Greatest Pain Intensity 6 Pain Aggravating Factors Walking,Weight Bearing/ Standing Lower Extremity Range of Motion Gross Lower Extremity Range of Motion L knee active flexion -2 - 0- 115 R knee active flexion 92 R knee active extension in supine -8 Lower Extremity Muscle Strength Testing Gross Lower Extremity Strength R knee long arc quad lacking - 25 deg of terminal knee extension L hip flexion 4/5 R hip flexion 3+/5 L knee flexion/extension 4+/5 R knee flexion/extension 4/5 Palpation Assessment Palpation infrapatellar pole, posterior knee fossa, medial knee joint line Balance Assessment Timed Up and Go Test (TUG) (Seconds) 20 Assistive Devices Cane, Straight 5 Time Sit to Stand Time in Seconds 24 5 Time Sit to Stand Comments 24s with the use of UEs, 22s Query Text:Normative Data: If Greater without the use of UEs Gait Assessment Ambulation Assistive Devices Cane Gait Pattern Ataxic Gait,Trendelenburg Gait Gait Pattern Observed Decreased Stride Length - Left ,Decreased Weight Shift - Right,No Heel Strike - Left,No Heel Strike - Right,Trunk
--- NOTE | 2021-10-07 09:46 | PTOPEVAL ---
PHYSICAL THERAPY PROGRESS REPORT AND DISCHARGE SUMMARY. Thank you for referring Rosalva Angel to [facility].? The patient is to be discharged from skilled therapy services at this time. Please review, sign, date and return this plan of care AZUL. I agree with and certify that the following plan of care is medically necessary. Referring Physician Date Attending Provider: Mary Mercado NP Evaluation Information Diagnosis R knee pain Onset 1 year Subjective Information Pt states her knee is doing Query Text:As Reported By Patient/ pretty good, until last in the Family day when she states to get tired. She is a little worried her knee will give out on her . She has been using the cane more consistently. She states she no longer has to go to the education director. Pt states she is now able to stand a cook a meal. Pain Assessment Right Knee(s) Reported Pain Level 1 Pain Description Aching Lowest Pain Intensity 0 Greatest Pain Intensity 4 Lower Extremity Range of Motion Gross Lower Extremity Range of Motion L knee active flexion -2 - 0- 115 R knee active flexion 95 R knee active extension in supine -5 Lower Extremity Muscle Strength Testing Gross Lower Extremity Strength R knee long arc quad lacking - 20 deg of terminal knee extension L hip flexion 4+/5 R hip flexion 4/5 L knee flexion/extension 4+/5 R knee flexion/extension 4/5 Palpation Assessment Palpation posterior knee fossa Balance Assessment Timed Up and Go Test (TUG) (Seconds) 18 Assistive Devices Cane, Straight Comments Initially: 20s with cane 10/07/21: 17.2s with cane 5 Time Sit to Stand 5 Time Sit to Stand Comments Initially: 24s with the use of Query Text:Normative Data: If Greater UEs, 22s without the use of Than 15 Seconds, 74% Increase Risk for UEs Recurrent Falls 10/07/21: 19.2s without the use of UEs Gait Assessment Ambulation Assistive Devices Cane Gait Pattern Ataxic Gait Gait Pattern Observed Decreased Stride Length - Left ,Decreased Stride Length - Right,Decreased Weight Shift - Right,Trunk Lateral Lean - Right 2 Minute Walk Total Distance Walked (feet) 290 2 Minute Walk Gait Speed Score (feet/ 2.41 2 Minute Walk Test Comm
== END 2021-10-07 14:14 | disposition home or self-care (01) ==
LOC: ANHPT 09:00
PROVIDERS: PCP Nurse Practitioner Family; Referring Provider Nurse Practitioner Family; Visit Provider Nurse Practitioner Family
DX: M25.561 Pain in right knee (principal); R53.1 Weakness
CPT/HCPCS: 97110; 97112; 97116; 97140; 97161; 97530

== ENCOUNTER 2022-05-11 07:50 | Outpatient (CLI) | payer MEDICARE, SELFPAY ==
--- NOTE | ~2022-05-11 | XR_ITS ---
XR abdomen/kub 1V 05/11/2022 08:14 Indication: History of renal stones Procedure: KUB Comparison: Comparison to multiple prior studies sequentially, with oldest reviewed study dated 08/2019. Findings: There are multiple right renal stones. No definite left renal stones. Bowel gas pattern non obstructive with moderate colonic fecal loading. There is lower thoracic and lumbar spondylosis with levoscoliosis. There is atherosclerosis. Impression: 1: Right nephrolithiasis. Reviewed, dictated and finalized at location B. TER TUMBLING BARREL Impression: 1: Right nephrolithiasis.
== END 2022-05-11 07:51 | disposition home or self-care (01) ==
LOC: ANHIMG 07:55
PROVIDERS: PCP Family Medicine; Visit Provider Urology
DX: N20.0 Calculus of kidney (principal)
CPT/HCPCS: 74018

== ENCOUNTER 2022-10-22 08:52 | Outpatient (CLI) | payer MEDICARE, SELFPAY ==
--- NOTE | ~2022-10-22 | MM_ITS ---
EXAMINATION: MM screening [facility] BI w [place] HISTORY: Screening mammogram, history of right breast cancer TECHNIQUE: Craniocaudal and mediolateral oblique 3-D tomosynthesis images were obtained and synthetic 2-D images were generated. CAD analysis was submitted and interpreted. COMPARISON: 09/03/2021, 08/14/2020, 08/11/2019 BREAST PARENCHYMAL COMPOSITION: There are scattered areas of fibroglandular density. FINDINGS: There are stable lumpectomy changes of the right breast. No suspicious mass, calcification, or architectural distortion are identified in either breast to suggest malignancy. There has been no suspicious interval change. IMPRESSION: 1. No mammographic evidence of malignancy. 2. Recommend routine screening mammography while the patient remains in good health. BI-RADS Category 2: Benign finding(s). Reviewed, dictated and finalized at location A. IMPRESSION: 1. No mammographic evidence of malignancy. 2. Recommend routine screening mammography while the patient remains in good he alth. BI-RADS Category 2: Benign finding(s).
== END 2022-10-22 08:53 | disposition home or self-care (01) ==
PROVIDERS: PCP Nurse Practitioner Family; Visit Provider Family Medicine
DX: Z12.31 Encounter for screening mammogram for malignant neoplasm of breast (principal)
CPT/HCPCS: 77063; 77067

== ENCOUNTER 2023-06-10 10:07 | Outpatient (CLI) | payer MEDICARE, SELFPAY ==
--- NOTE | ~2023-06-10 | XR_ITS ---
XR abdomen/kub 1V 06/10/2023 10:26 Indication: History of kidney stones Procedure: KUB Comparison: Comparison to multiple prior studies sequentially, with oldest reviewed study dated 05/28. Findings: There are right renal stones. Bowel pattern nonobstructive. Moderate colonic fecal loading. Severe lumbar spondylosis. Impression: 1: Right nephrolithiasis. Reviewed, dictated and finalized at location L. Impression: 1: Right nephrolithiasis.
== END 2023-06-10 10:08 | disposition home or self-care (01) ==
LOC: ANHIMG 10:11
PROVIDERS: PCP Nurse Practitioner Family; Visit Provider Urology
DX: N20.0 Calculus of kidney (principal)
CPT/HCPCS: 74018

== ENCOUNTER 2023-12-20 14:04 | Outpatient (CLI) | payer MEDICARE, SELFPAY ==
--- NOTE | ~2023-12-20 | MM_ITS ---
EXAMINATION: MM screening [facility] BI w [place] HISTORY: Screening TECHNIQUE: Craniocaudal and mediolateral oblique 3-D tomosynthesis images were obtained and synthetic 2-D images were generated. CAD analysis was submitted and interpreted. COMPARISON: Comparison to multiple prior studies sequentially, with oldest reviewed study dated 08/10. BREAST PARENCHYMAL COMPOSITION: Not dense: There are scattered areas of fibroglandular density. FINDINGS: There is stable architectural distortion in the upper outer quadrant of the right breast, c onsistent with previous lumpectomy. There is no evidence of suspicious mass, calcification, or curt ectural distortion to suggest malignancy in either breast. There has been no suspicious interval lang ge. IMPRESSION: 1. No mammographic evidence of malignancy. 2. Recommend routine screening mammography in one year. BI-RADS Category 2: Benign finding(s). Reviewed, dictated and finalized at location B.
== END 2023-12-20 14:05 | disposition home or self-care (01) ==
LOC: ANHIMG 14:06
PROVIDERS: PCP Nurse Practitioner Family; Visit Provider Nurse Practitioner Family
DX: Z12.31 Encounter for screening mammogram for malignant neoplasm of breast (principal)
CPT/HCPCS: 77063; 77067

== ENCOUNTER 2024-04-12 10:13 | Outpatient (CLI) | payer MEDICARE, SELFPAY ==
--- NOTE | ~2024-04-12 | XR_ITS ---
EXAMINATION: XR shoulder RT min 2V DATE: 04/12/2024 11:12 INDICATION: Right shoulder pain. TECHNIQUE: 4 views of right shoulder were obtained. COMPARISON: None. FINDINGS: Alignment is normal. No fracture. There is mild osteoarthritis of glenohumeral joint and se marcella osteoarthritis of acromioclavicular joint. There are surgical clips in right axilla. IMPRESSION: 1. Polyarticular osteoarthritis. Reviewed, dictated and finalized at location A. IC SPEAKING COACH
--- NOTE | ~2024-04-12 | XR_ITS ---
[id number] 04/12/2024 11:12 Indication: Right knee pain Procedure: 2 views right knee Comparison: No prior studies for comparison. Findings: There is severe osteoarthritis of the right knee. Possible osteochondral defect involving t he proximal tibia at the tibial condyles. Small joint effusion. No acute fractures identified. Impression: 1: Severe tricompartment osteoarthritis. 2: Possible osteochondral defect central aspect of the proximal tibia at the tibial condyles. Reviewed, dictated and finalized at location A. DING OPERATOR Impression: 1: Severe tricompartment osteoarthritis. 2: Possible osteochondral defect central aspect of the proximal tibia at the t ibial condyles.
--- OUTSIDE RECORDS SUMMARY | 2024-04-12 11:11 | XMS_ITS | CONTINUITY OF CARE DOCUMENT ---
Author Name sarwatvinniefabiano Address Unknown Organization [facility] Address [address] [place] [address] Phone [phone] Care Team Providers Care Kettle Room Helper Name Role Phone Vishal VERA, Jesus Unavailable NICK VERA, SO Hair Unavailable [phone] INSURANCE PROVIDERS Payer name Policy type / Coverage type [place] red libertarian ID A[employer] insurance [employer] [id number] [place] [employer] Medicare [id number]
--- OUTSIDE RECORDS SUMMARY | 2024-04-12 11:11 | XMS_ITS | Encounter Summary ---
Author Organization [facility] Address [address] [place] [phone] Phone Care Team Providers Care Parenting Skills Instructor Name Role Phone Isacc Lee MD Primary Care Provider [phone] Encounter Details Date Type Department Care Team (Late st Contact Info) Description 03/04/2020 [facility] Nephrology and Hypertension [address] [facility], [address] [address] Rafy Norman MD [address] [facility], [address] [place] [address] Social History Tobacco Use Types Packs/Day Years Used Date Smoking Tobacco: Never Smokeless Tobacco: Never Alcohol Use Standard Drinks/Week Comments No 0 (1 standard drink = 0.6 oz pur e alcohol) Sex and Gender Information Value Date Recorded Sex Assigned at Not on file Gender Identity Not on file Sexual Orientation Not on file documented as of this encounter Miscellaneous Notes * Telephone Encounter - Rafy Norman MD - 03/04/2020 5:11 PM CST Please let pt know K citrate is best taken if by prescription. I can call it in so she can pick it up. Take after meals. Please ask her which pharmacy she uses. documented in this encounter Plan of Treatment Not on file documented as of this encounter Visit Diagnoses Not on filedocumented in this encounter Care Teams Parenting Skills Instructor Relationship Specialty Start Date End Date Isacc Lee MD [address] [place] [id number] PCP - General Internal Medicine 07/31/20 documented as of this encounter
--- OUTSIDE RECORDS SUMMARY | 2024-04-12 11:11 | XMS_ITS | Clinical Summary ---
Author Organization [facility] Address [address] [place] [address]. [place], [place] [id number] [place] [address] Care Team Providers Care 1St [employer] Name Role Phone Unavailable Primary Care Provider Unavailabl e Social History Tobacco Use Types Packs/Day Years Used Date Smoking Tobacco: Never Assessed Comments Unknown Sex and Gender Information Value Date Recorded Sex Assigned at Not on file Legal Sex Female 5:51 PM CDT Gender Identity Not on file Sexual Orientation Not on file Plan of Treatment Health Maintenance Due Date Last Done Comments DTaP, Tdap and Td Vaccines ( 1 - Tdap) 02/11/1954 Zoster Vaccines (1 of 2) 1987 Pneumococcal Vaccine: 65+ Ye ars (1 of 1 - PCV) 2002 RSV Immunization or 60+ Years (1 - 1-dose 75+ series) 02/11/2012 COVID-19 Vaccine (2023-2 5 season) 2023 Influenza Adult (#1) 2023 Meningococcal B Vaccine Aged Out No l onger eligible based on patient's age to complete this topic Meningococcal Vaccine Aged Out No samantha julia eligible based on patient's age to complete this topic RSV Immunizations Under 20 Months Aged Out No longer eligible based on patient's age to complete this topic
--- OUTSIDE RECORDS SUMMARY | 2024-04-12 11:11 | XMS_ITS | Clinical Summary ---
Author Organization [facility] Address [address] [place] [address] Phone Care Team Providers Care Truck Rental Clerk Name Role Phone Isacc Lee MD Primary Care Provider [phone] Allergies Active Allergy Reactions Criticality Noted Date Comments Ciprofloxacin Iodinated Contrast Media Hives Medium 04/27/2017 Penicillins Cough Low Prednisone Sulfa Antibiotics Sulfamethoxazole Hives Medium 03/20/2019 Trimethoprim 03/20/2019 Medications Medication Sig Dispensed Refills Start Date End Date Status aspirin (ASPIR-LOW) 81 MG EC tablet 1 daily 0 09/19/2017 Active metoprolol succinate XL (TOPROL-XL) 50 MG 24 hr tablet 1 daily 0 09/19/2017 Active simvastatin (ZOCOR) 20 MG tablet 1 daily 0 09/19/2017 Active FIBER ADULT GUMMIES 2 g chewable tablet 1 daily 0 09/19/2017 Active Multiple Vitamin (MULTIVITAMIN) capsule 1 daily 0 09/19/2017 Ac tive Coenzyme Q10 (COQ10) 100 MG capsule 1 daily 0 09/19/2017 Active Lutein-Zeaxanthin 25-5 MG capsule 1 daily 0 09/19/2017 Active glucosamine-chondroiti n 500-400 MG tablet Take 1 tablet by mouth 2 times daily Active metFORMIN XR (GLUCOPHATE-XR) 500 MG 24 hr tablet Take 500 mg by mouth 2 (two) times a day 12/30/2018 Active montelukast (SINGULAIR) 10 MG tablet 10 mg 03/19/2015 Active omeprazole OTC (PRILOSEC OTC) 20 MG EC tablet Take 20 mg by mouth daily Active traMADol (ULTRAM) 50 MG tablet Take 50 mg by mouth every 6 (six) hours if needed 05/19/2019 Active valsartan (DIOVAN) 40 MG tablet Take 40 mg by mouth 1 (one) time each day 10/22/2019 Active Niacin, Antihyperlipidemic, (Niacor) 500 MG tablet Take 500 mg by mouth daily Active Active Problems Problem Noted Date Diagnosed Date Hematuria 03/16/2019 Urinary tract infection 03/16/2019 Chronic kidney disease, Stage IV (severe) 2017 Calculus of kidney 09/20/2017 Essential (primary) hypertension 09/20/2017 Atherosclerotic heart diseas e of [place] coronary artery without angina pectoris 09/20/2017 Hypercalcemia 09/20/2017 Degeneration of lumbar intervertebral disc 04/16 Gastroesophageal reflux disease 04/16/2017 Hypothyroidism 04/16/2017 History of placement of stent for coronary arter y disease 10/01/2016 Resolved Problems Problem Noted Date Diagnosed Date Resolved Date Type 2 diabetes mellitus without complication 09/21/19 18 02/01/2020 Immunizations Name Administration Dates Next Due Fluzone High-Dose 11/05/2019 Influenza (IM) Preservative Free 12/14/2012 Influenza Split High Dose Pr eservative Free IM 12/24/2018,10/21/2017,11/04/2015,11/27,12/08/2013 Influenza TIV (IM) 12/29/2020,12/24/2018, 010 Pneumococcal Conjugate 13-Valent 03/24/2018 Pneumococcal Polysaccharide 03/24/2019,1 ,01/01/2009,12/25,12/17/1998 Tdap 07/15/2011 Family History Medical History Relation Comments Kidney disease Neg Hx Kidney stone Neg Hx Social History Tobacco Use Types Packs/Day Years Used Date Smoking Tobacco: Never Smokeless Tobacco: Never Alcohol Use Standard Drinks/Week Comments No 0 (1 standard drink = 0.6 oz pur e alcohol) Sex and Gender Information Value Date Recorded Sex Assigned at Not on file Gender Identity Not on file Sexual Orientation Not on file Last Filed Vital Signs Vital Sign Reading Time Taken Comments Blood Pressure 122/80 10/27/2021 11:11 AM CDT Pulse 72 10/27/2021 11:11 AM CDT Temperature 36.3 ??C (97.4 ??F) 10/27/2021 11:11 AM C DT Respiratory Rate - - Oxygen Saturation - - Inhaled Oxygen Concentration - - Weight 100 kg (221 lb) 10/27/2021 11:11 AM CDT Height 162.6 cm (5' 4 ) 10/27/2021 11:11 AM CDT Body Mass Index 37.93 10/27/2021 11:11 AM CDT Plan of Treatment Health Maintenance Due Date Last Done Comments Influenza Vaccine (#1) 2023 , 12/24/2018, 12/14/2012, Additional history exists Pneumococcal PPSV23/PCV13 65 + Years / High and Highest Risk Completed 03/24/2019, 03/24/2018, 12/29/2013, Additional history exists Care Teams Truck Rental Clerk Relationship Specialty Start Date End Date Isacc Lee MD [address] [place] [id number] PCP - General Internal Medicine 07/31/20
--- OUTSIDE RECORDS SUMMARY | 2024-04-12 11:11 | XMS_ITS | Referral Summary ---
Author Organization [facility] [address] Address [address] [place] [address] Care Team Providers Care Seed Potato Cutter Name Role Phone Isacc Lee MD Primary Care Provider [phone] Allergies Active Allergy Reactions Criticality Noted Date Comments Benzalkonium Chloride Rash Medium 06/28/2023 1+ Cocamide Alyssia Rash Medium 06/28/2023 1+ Iodine And Iodide Containing Products Hives Medium Ioversol Unknown 02/18/2011 Iodinated Contrast Media Hives Medium 04/27/2017 Penicillins Cough Low Prednisone Unknown 03/23/2019 Shellac Rash Medium 06/28/2023 1+ Sulfa (Sulfonamide Antibiotics) Hives Medium Sulfamethoxazole Hives Medium Trimethoprim Medications montelukast (SINGULAIR) 10 mg tablet take 1 tablet by oral route every day in the evening 0 0 6 Active aspirin (ASPIR-81) 81 mg tablet take 1 Tablet by oral route every day 0 0 6 Active omeprazole OTC (PriLOSEC OTC) 20 mg EC tablet Take 1 tablet (20 mg total) by mouth every morning Active multivitamin capsule Take 1 capsule by mouth daily Active glucosamine-cho ndroitin 500-400 mg tablet Take 1 tablet by mouth 2 (two) times a day Active coenzyme Q10 100 mg capsule Take 1 capsule (100 mg total) by mouth every morning Active lutein-zeaxanth in 25-5 mg capsule Take 1 tablet by mouth every morning. Active valsartan (DIOVAN) 40 mg tablet TAKE 1 TABLET BY MOUTH EVERY DAY 90 tablet 2 2 Active triamcinolone (KENALOG) 0.1 % ointment Apply topically 2 (two) times a day as needed (Rash) 60 g 3 Active Additional Information Patient not taking.Reported on 04/22/2023 gentamicin (GARAMYCIN) 0.1 % ointment Apply topically 3 (three) times a day Apply to feet after bleach soaks 15 g 2 3 Active Additional Information Patient not taking.Reported on 04/22/2023 ciprofloxacin (CIPRO) 500 mg tablet Take 1 tablet (500 mg total) by mouth 2 (two) times a day 42 tablet 3 Active Additional Information Patient not taking.Reported on 04/22/[address] (CYMBALTA) 30 mg capsule Take 1 capsule (30 mg total) by mouth daily Active ketoconazole (NIZORAL) 2 % cream Apply topically daily Between toes 60 g 11 4 Active bumetanide (BUMEX) 1 mg tablet Take 1 tablet (1 mg total) by mouth daily Active simvastatin (ZOCOR) 20 mg tablet TAKE 1 TABLET BY MOUTH EVERYDAY AT BEDTIME 90 tablet 1 4 Active metoprolol XL (TOPROL-XL) 50 mg extended release tablet TAKE 1 TABLET BY MOUTH EVERY DAY 90 tablet 1 4 Active Active Problems Problem Noted Date Diagnosed Date Foot infection 07/07/2021 Assessment & Plan (09/02/2021 7:02 PM CDT): - Since last ID visit bilateral feet have improved significantly. At this time she continues with daily bleach soaks as well as using Gentamicin topical to her feet daily per Dermatology recommendations. She also recently finished a 30 day course of Ciprofloxacin 500 mg BID. - No biopsy indicated at this time per dermatology - She is scheduled to follow with Dermatology again on 09/10/21. - She does continue to use spacers between the great and 2nd toe on each foot but she states that she uses a new one each time, has stopped reusing them. - She has also bought new tennis shoes and sandals. - Discussed again that it would be best to surgically manage her feet when it comes to the bunions and/or hammer toes that are causing issues with walking and her ability to wear shoes to prevent the need of using the spacers. She stated that with her age she is not looking into surgery and will continue with buying new shoes and using new spacers daily. - No labs needed today - Discussed continuing to follow with Dermatology - From an ID standpoint would have her follow with us as needed. - Discussed with patient the rational for treatment, culture results, risk of recurrent infection, signs/symptoms of recurrent infection, and to contact ID clinic with any questions or concerns Assessment & Plan (07/21/2021 8:51 PM CDT): - Since last ID visit she has stopped taking the Prednisone as well as the Diflucan. At initial ID visit it was not felt that this was caused by yeast which is why we had stopped the Diflucan. She completed the steroid course. Discussed possibilities of fungal infection, do not strongly feel that this is a bacteria infection or cellulitis. - She is scheduled to follow with Dermatology on 07/23/21 for evaluation/treatment and possible biopsy to determine diagnosis so that we can appropriately treat. - She does continue to use spacers between the great and 4th toe on each foot. She has unfortunately been unable to find the correct size and is not able to walk without them. She stated that spacers were cleaned and sanitized prior to use. Discussed using new ones when at all possible. Thoughts are that the infection most likely originated from the use of these spacers possibly being the cause of entry of the infection/fungal/or underlying dermatological issue. - Discussed again possibly buying new shoes as the shoes present today are the only ones that she wears. Since last ID visit she has been unable to buy new shoes. She has been looking into new shows. - It would be best to surgically manage her feet when it comes to the bunions and/or hammer toes that are causing issues with walking and her ability to wear shoes to prevent the need of using the spacers. - Will have her continue to use the Ketoconazole cream with instructions to apply to feet twice daily - Foul odor to her feet was present today, will have her start using Clindamycin cream to her feet as well twice daily. Will need to space out application time of both the Ketoconazole and the Clindamycin. - Twice daily dressing changes with non-adherent pads. - Follow-up in 4 weeks - No labs needed today - Discussed with patient the rational for treatment, culture results, risk of recurrent infection, signs/symptoms of recurrent infection, and to contact ID clinic with any questions or concerns Assessment & Plan (07/07/2021 9:28 PM CDT): - Pt presents to ID clinic today for evaluation of bilateral feet infection. This has been an ongoing issue since 2015. Most recently infection is limited to the feet only. Prior infections patient noted redness was present on the lower extremities as well as the feet. This time infection is present on bottom of feet, right worse than left. Bottom of the feet with hyperkeratosis that is green in color with two fissures present on the bottom of right foot - Currently she is on Prednisone which was by an outside physician, and she started her first day of Diflucan by an outside physician. She is to take 1 tablet every 3 days for a total of 6 doses. - Attending and Nurse practitioner examined patient in clinic today. Discussed that we don't feel that this is being caused by yeast and that patient can stop the Diflucan. Discussed this could possibly be a fungal infection, do not feel strongly that this is a bacteria infection or cellulitis. - Patient has spacers present between the great and 4th toe on each foot. These spacers are used and then washed and then used again. Thoughts are that the infection most likely originated from the use of these spacers possibly being the cause of entry of the infection/fungal/or underlying dermatological issue. - Discussed that moving forward we need to determine the cause of this infection is it fungal, possibly severe case of athletes foot, or is it an underlying dermatological issue. - Would recommend Dermatology referral with biopsy to confirm diagnosis so that we can appropriately treat. She is scheduled with an outside skimmer scoop operator on 08/06. Will place referral with Dermatology at [facility] for possible sooner appointment. - In the meantime discussed keeping feet clean and dry. When at home or sitting instructed to air feet out. Change shoes frequently as well as socks. Discussed possibly buying new shoes as the shoes present today are the only ones that she wears as her other shoes do not fit - Discussed moving forward if using the spacers to use new ones daily and not to reuse. - Discussed that it would be best to surgically manage her feet when it comes to the bunions or hammer toes that are causing issues with walking and her ability to wear shoes to prevent the need of using the spacers. - Will prescribe Ketoconazole cream with instructions to apply to feet twice daily - Follow-up in 2 weeks - No labs needed today - Discussed with patient the rational for treatment, culture results, risk of recurrent infection, signs/symptoms of recurrent infection, and to contact ID clinic with any questions or concerns Abnormal SPEP 07/28/2019 Type 2 diabetes mellitus 04/16/2017 GERD (gastroesophageal reflux disease) 8 Mild asthma 04/16/2017 Hiatal hernia 04/16/2017 Hypertension 04/16/2017 Degenerative disc disease, lumbar 04/16/2017 Osteoarthritis 04/16/2017 Hypothyroid 04/16/2017 CAD (coronary artery disease) 10/01/2016 S/P coronary artery stent placement 10/01/2016 [place] (myocardial infarction) 03/15/2014 Immunizations Name Administration Dates Next Due Influenza, Trivalent, High D ose, Split, Preservative Free, Intramuscular 12/24/2018,10/21/2017,11/04/2015,11/27,12/08/2013 Pneumococcal Conjugate PCV 13 03/24/2018 Pneumococcal Polysaccharide PPV23 03/24/2019 Social History Tobacco Use Types Packs/Day Years Used Date Smoking Tobacco: Never Smokeless Tobacco: Never Tobacco Cessation:Counseling Given: Not Answered Alcohol Use Standard Drinks/Week Comments No 0 (1 standard drink = 0.6 oz pur e alcohol) AUDIT-C Answer Date Recorded Q1: How often do you have a drink containing alc ohol? Never 07/07/2021 Average Number of Drinks Not on file 022 Frequency of Binge Drinking Not on file 06/14 Comments No Sex and Gender Information Value Date Recorded Sex Assigned at Not on file Legal Sex Female 7:39 PM ABRASIVE BAND WINDER Gender Identity Not on file Sexual Orientation Not on file Last Filed Vital Signs Vital Sign Reading Time Taken Comments Blood Pressure 112/70 10/21/2023 10:04 AM CDT Pulse 84 10/21/2023 10:04 AM CDT Temperature 36.8 ??C (98.3 ??F) 09/01/2021 1 2:36 PM CDT Respiratory Rate 15 09/28/2019 9:26 AM CDT Oxygen Saturation 94% 10/21/2023 10: 04 AM CDT Inhaled Oxygen Concentration - - Weight 103.7 kg (228 lb 9.6 oz) 024 10:04 AM CDT Height 162.6 cm (5' 4 ) 10/21/2023 10:0 4 AM CDT Body Mass Index 39.24 10/21/2023 10:04 AM CDT Plan of Treatment Not on file Medical Devices Implanted Type 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 Salesperson [employer] Device Identifier Shelf Expiration Date Model / Serial / Lot Stent Ureteral Contour Percuflex Hydroplus Pigtail Curve L30 Cm Od6 Fr Taper Tip Bladder Tra Low Profile Large Inner Lumen Latex Free - [id number] Implanted:Qty: 1 on 04/29/2017 by Radha Mcneil MD at [facility] Stent Right: Ureter [employer]osun 2020 180-225 / / [id number] Procedures Procedure Name Priority Date/Time Associated Diagnosis Comments BASIC METABOLIC PANEL Routine 03/31/2022 9:15 AM ABRASIVE BAND WINDER Foot infection HEMOGLOBIN A1C Routine 04/16/2017 10:04 AM ABRASIVE BAND WINDER from Last 3 Months or Most Recently Relevant to Health Maintenance Results * (ABNORMAL) Basic metabolic panel (03/31/2022 9:15 AM ABRASIVE BAND WINDER) Glucose 149(H) 65 - 99 mg/dL [facility] Comment: ? Fasting reference interval For someone without known diabetes, a glucose value >125 mg/dL indicates that they may have diabetes and this should be confirmed with a follow-up test. BUN 17 7 - 25 mg/dL [facility] Creatinine 1.59(H) 0.60 - 0.95 mg/dL [facility] eGFR 32(L) > OR = 60 mL/min/1.7 3m2 [facility] Comment: The eGFR is based on the CKD-EPI 2020 equation. To calculate the new eGFR from a previous Creatinine or Cystatin C result, go to https://www.kidney.org/professionals/ kdoqi/gfr%5Fcalculator BUN/creat ratio 11 6 - 22 (calc) [facility] Sodium 140 135 - 146 mmol/L [facility] Potassium, pl 4.2 3.5 - 5.3 mmol/L [facility] Chloride 105 98 - 110 mmol/L [facility] CO2 26 20 - 32 mmol/L [facility] Calcium 9.8 8.6 - 10.4 mg/dL [facility] Blood 03/31/2022 9:15 AM ABRASIVE BAND WINDER 03/31/2022 9:15 AM ABRASIVE BAND WINDER us Willis JADE LAB BLOOD ORDERABLES F inal Result [facility] [address] [place] [id number] * Hemoglobin A1c (04/16/2017 10:04 AM ABRASIVE BAND WINDER) Hgb A1C 5.3 4.0 - 6.0 % [facility] Blood specimen (specimen) 04/16/2017 10:04 AM ABRASIVE BAND WINDER 04/16/2017 10:57 AM ABRASIVE BAND WINDER Narrative [facility] - 04/16/2017 11:27 AM ABRASIVE BAND WINDER us Radha Mcneil MD LAB BLOOD ORDERABLES Final Re sult [facility] [address] Department [place] [address] from Last 3 Months or Most Recently Relevant to Health Maintenance Insurance [facility] MEDICARE [facility] MEDICARE AARP Advance Directives For more information, please contact: [phone] Documents on File Type Date Recorded Patient Local 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
--- OUTSIDE RECORDS SUMMARY | 2024-04-12 11:11 | XMS_ITS | Clinical Summary ---
Author Organization [facility] [address] Address [address] [place] [address] Care Team Providers Care Real Estate Broker Associate Name Role Phone Isacc Lee MD Primary Care Provider [phone] Allergies Active Allergy Reactions Criticality Noted Date [...] treat. She is scheduled with an outside egg grader on 08/06. Will place referral with Dermatology at [facility] for possible sooner appointment. - In the [...] 10/01/2016 S/P coronary artery stent placement 10/01/2016 [place] (my[place] infarction[place] 03/15/2014 Immunizations Name Administration Dates Next Due Influenza, Trivalent, High D ose, Split, Preservative Free, Intramuscular 12/24/2018,10/21/2017,11/04/2015,11/27,12/08/2013 Pneumococcal Conjugate PCV 13 03/24/2018 Pneumococcal Polysaccharide PPV23 03/24/2019 Surgical History Surgery Date Site/Laterality Comments BREAST LUMPECTOMY 03/15/1998 - 03/14/1999 Right BREAST BIOPSY Multiple TONSILLECTOMY HYSTERECTOMY BREAST LUMPECTOMY no bp or needle stick to right arm CARDIAC STENT PLACEMENT 03/15/2014 - 03/14/2015 NEPHROURETERAL STENT PLACEMENT NEW ACCESS RIGHT 04/27/2017 Right PERCUTANEOUS NEPHROSTOMY PCN RIGHT 04/27/2017 Right KIDNEY STONE SURGERY 04/15/2017 - 05/12/2017 Medical History Medical History Date Comments Type 2 diabetes mellitus (HCC) Hypothyroidism Asthma Hypertension Stone, kidney [place] (my[place] infarction) (HCC) 2015 Cellulitis Family History Medical History Relation Name Comments Anemia Father Blood disease; Cause of : Blood disease Hypertension Father Liver disease Father Alzheimer's disease Mother Alzheime r's disease; Coronary artery disease Mother Heart disease Mother Hypertension Mother Relation Name Status Comments Father (Age 77) Mother (Age 82) Social History Tobacco Use Types Packs/Day Years [...] on file Legal Sex Female 7:39 PM 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 CULTURE OPERATOR Gender Identity Not on file Sexual Orientation Not on file Obstetrics History Last Filed Vital Signs Vital Sign Reading [...] 10/21/2023 10:04 AM CDT Plan of Treatment Health Maintenance Due Date Last Done Comments Albumin Creatinine Ratio, Urine 1937 Depression Screening 1937 Dilated Eye Exam 1937 Foot Exam 1937 Lipid Panel 1937 DTaP/Tdap/Td Vaccine (1 - Tdap) 02/11/1948 Zoster Vaccine (1 of 2) 1987 Well Visit 65+ 2002 Hemoglobin A1C 10/14/2017 04/16/2017 Fall Risk Assessment 09/27/2020 09/28/2019 eGFR 03/31/2023 03/31/2022, 04/15, 04/29/2017, Additional history exists Influenza Vaccine (#1) 2023 , 12/24/2018, 10/21/2017, Additional history exists Pneumococcal vaccine 65+ Completed 03/24/2019, 03/15 Medical Devices Implanted Type Area Sqe Device Identifier Shelf Expiration Date Model / Serial / Lot Stent Ureteral Contour Percuflex Hydroplus Pigtail Curve L30 Cm Od6 Fr Taper Tip Bladder Tra Low Profile Large Inner Lumen Latex Free - [id number] Implanted:Qty: 1 on 04/29/2017 by Radha Mcneil MD at [facility] Stent Right: Ureter [employer]apid [place] 2020 180-225 / / [id number] Procedures Procedure Name Priority Date/Time Associated Diagnosis Comments BASIC METABOLIC PANEL Routine 03/31/2022 9:15 AM YEAST CULTURE OPERATOR Foot infection HEMOGLOBIN A1C Routine 04/16/2017 10:04 AM YEAST CULTURE OPERATOR from Last 3 Months or Most Recently Relevant to Health Maintenance Results * (ABNORMAL) Basic metabolic panel (03/31/2022 9:15 AM YEAST CULTURE OPERATOR) Glucose 149(H) 65 - 99 mg/dL [facility] [...] [facility] Blood 03/31/2022 9:15 AM YEAST CULTURE OPERATOR 03/31/2022 9:15 AM YEAST CULTURE OPERATOR us Willis JADE LAB BLOOD ORDERABLES F inal Result [facility] [address] [place] [id number] * Hemoglobin A1c (04/16/2017 10:04 AM YEAST CULTURE OPERATOR) Hgb A1C 5.3 4.0 - 6.0 % [facility] Blood specimen (specimen) 04/16/2017 10:04 AM YEAST CULTURE OPERATOR 04/16/2017 10:57 AM YEAST CULTURE OPERATOR Narrative [facility] - 04/16/2017 11:27 AM YEAST CULTURE OPERATOR us Radha Mcneil MD LAB BLOOD ORDERABLES Final Re sult [facility] [address] Department [place] [address] from Last 3 Months or Most Recently Relevant to Health Maintenance Insurance [facility] MEDICARE MEDICARE [facility] MEDICARE [facility] Advance Directives For more information, please contact: [phone] Documents on File Type Date Recorded Patient Guitar Instructor Expl anation ADVANCE DIRECTIVE 04/27/2017 5:45 AM ADVANCE DIRECTIVE 04/27/2017 Advance Di rective Checklist * Full Code (Latest Code Status on File) Date Activated Date Inactivated Comments 04/27/2017 6:44 PM 04/30/2017 2:14 PM Care Teams Real Estate Broker Associate Relationship Specialty Start Date End Date Isacc Lee MD [address] [address] PCP - General Family Medicine 10/03/20
== END 2024-04-12 10:14 | disposition home or self-care (01) ==
PROVIDERS: PCP Nurse Practitioner Family; Visit Provider Nurse Practitioner Family
DX: M17.11 Unilateral primary osteoarthritis, right knee (principal); M25.511 Pain in right shoulder
CPT/HCPCS: 73030; 73560

== ENCOUNTER 2024-07-19 09:35 | Outpatient (CLI) | payer MEDICARE, SELFPAY ==
--- NOTE | ~2024-07-19 | DEXA_ITS ---
Bone Density Report Name: ADDIE JORGE Age: 89 Sex: Female Ethnicity: White Date of : 1935 Indication: postmenopausal; screening for osteoporosis; height loss; cancer; asthma or emphysema; hysterectomy; Referring Provider: DON CAMPOS Study: Bone densitometry was performed. Exam Date: July 19, 2024 Accession number: [id number] Bone Density: Region BMD T-score Z-score Classification AP Spine(L1, L2, L4) 1.347 2.8 5.7 Normal Femoral Neck (Left) 0.888 0.3 2.9 Normal Total Hip (Left) 1.144 1.7 4.0 Normal Femoral Neck (Right) 0.877 0.3 2.8 Normal Total Hip (Right) 1.135 1.6 3.9 Normal Total Hip Mean 1.140 1.7 4.0 Normal World Health Organization criteria for BMD impression classify patients as: Normal (T-score at or above -1.0), Osteopenia (T-score between -1.0 and -2.5), or Osteoporosis (T-score at or below -2.5). 10-year Fracture Risk: FRAX not reported because: All T-scores for Spine Total, Hip Total, Femoral Neck at or above -1.0 Previous Exams: Region Exam Age BMD T-score BMD Change BMD Change Date g/cm2 vs Baseline vs Previous AP Spine (L1-L2,L4) 07/19/2024 89 1.347 2.8 -0.030 (-2.2%) -0.030 (-2.2%) 12/27/2017 82 1.377 3.1 Total Hip(Left) 07/19/2024 89 1.144 1.7 -0.012 (-1.0%) -0.012 (-1.0%) 12/27/2017 82 1.156 1.8 Total Hip(Right) 07/19/2024 89 1.135 1.6 0.050 (4.6%)* 0.050 (4.6%)* 12/27/2017 82 1.085 1.2 *Denotes significance at 95% confidence level, LSC for AP Spine = 0.022 g/cm2, LSC for Total Hip = 0.027 g/cm2 Clinical Information Provided by Patient: Has used the following medications: Vitamin D, Calcium Has the following medical conditions: Asthma or Emphysema, Cancer, Hysterectomy Patient maximum height was 66 Menopause Age: 52 No regular weight bearing exercise Drinks caffeinated beverages Onset of menses at age 13 Number of children 0 Impression: The patient has normal bone mass. The BMD for the AP Spine (L1-L2,L4) decreased, changing by -2.2% since the last DXA exam. Discussion: LOW RISK OF FRACTURE; BONE DENSITY IS WELL ABOVE THE MINIMUM DESIRABLE LEVEL AND ABOVE AVERAGE FOR AGE AND SEX AT ALL SKELETAL SITES TESTED. This person's bone density is above expected limits for age and sex. This is rarely clinically significant, but should be pursued if there are significant musculoskeletal complaints. The patient should follow a healthful lifestyle (good nutrition with adequate calcium and vitamin D, and appropriate weight-bearing exercise). Follow-Up: Consider repeating this study in 3 to 4 years to reassess this patient's status, or sooner if there is some new clinical indication. Reported by: JOZEF on 07/19/2024 10:21:00 AM. Reviewed, dictated and finalized at location [facility]
--- OUTSIDE RECORDS SUMMARY | 2024-07-19 10:04 | XMS_ITS | CONTINUITY OF CARE DOCUMENT ---
Author Name [email or web address] Address Unknown Organization [facility] Address [address] [place] [address] Phone [phone] Care Team Providers Care Laundry Press Operator Name Role Phone Vishal VERA, Jesus Unavailable NICK VERA, SO Hair Unavailable [phone] INSURANCE PROVIDERS Payer name Policy type / Coverage type Amorita red green party ID AARP [employer] insurance [employer] [id number] [place] MED[place] Medicare [id number]
--- OUTSIDE RECORDS SUMMARY | 2024-07-19 10:04 | XMS_ITS | Clinical Summary ---
Author Organization [facility] [address] Address [address] [place] [address] Care Team Providers Care Care Aid Name Role Phone Isacc Lee MD Primary Care Provider [phone] Allergies Active Allergy Reactions Criticality Noted Date [...] EVERY DAY 90 tablet [address] (CYMBALTA) 30 mg capsule Take 1 capsule (30 mg total) by mouth daily Active ketoconazole (NIZORAL) 2 % cream Apply topically daily Between toes 60 g 11 4 Active bumetanide (BUMEX) 1 mg tablet Take 1 tablet (1 mg total) by mouth daily Active metoprolol XL (TOPROL-XL) 50 mg extended release tablet TAKE 1 TABLET BY MOUTH EVERY DAY 90 tablet 1 4 Active simvastatin (ZOCOR) 20 mg tablet TAKE 1 TABLET BY MOUTH EVERYDAY AT BEDTIME 90 tablet 1 5 Active albuterol HFA (PROVENTIL HFA,VENTOLIN HFA,PROAIR HFA) 90 mcg/actuation inhaler INHALE 1 TO 2 PUFFS BY MOUTH EVERY 4 HOURS NEEDED FOR WHEEZE OR FOR SHORTNESS OF BREATH 5 Active Active Problems Problem Noted Date Diagnosed [...] This has been an ongoing issue since 2014. Most recently infection is limited to the [...] treat. She is scheduled with an outside sealing machine operator on 08/06. Will place referral with Dermatology at [facility] for possible sooner appointment. - In [...] 10/01/2016 S/P coronary artery stent placement 10/01/2016 [place] (myocardial infarction) 03/15/2014 Encounters Date Type Department Care Team Description 06/19/2024 10:30 AM CDT Office Visit [facility] Cardiology [address] [place] [address] Anitra Mccormick NP Coronary artery disease involving [place] coronary artery of [place] heart without angina pectoris (Primary Dx) from Last 3 Months Immunizations Immunization Administration Dates Next Due Influenza, Trivalent, High [...] mellitus (HCC) Hypothyroidism Asthma Hypertension Stone, kidney [place] (myocardial infarction) (HCC) 2015 Cellulitis Family History [...] on file Legal Sex Female 7:39 PM CONVEYOR MONITOR Gender Identity Not on file Sexual Orientation Not on file Obstetrics History Last Filed Vital Signs Vital Sign Reading Time Taken Comments Blood Pressure 132/66 06/19/2024 10:56 AM CDT Pulse 81 06/19/2024 10:56 AM CDT Temperature 36.8 C (98.3 F) 09/01/2021 12:36 PM CDT Respiratory Rate 15 09/28/2019 9:26 AM CDT Oxygen Saturation 95% 06/19/2024 10:56 AM CDT Inhaled Oxygen Concentration - - Weight 104.3 kg (230 lb) 06/19/2024 10:56 AM CDT Height 162.6 cm (5' 4 ) 06/19/2024 10:56 AM CDT Body Mass Index 39.48 06/19/2024 10:56 AM CDT Plan of Treatment Health Maintenance [...] 04/15, 04/29/2017, Additional history exists Influenza Vaccine (Season Ended) 2024 12/29/2020, 12/24/2018, 10/21/2017, Additional history exists Pneumococcal vaccine 65+ Completed 03/24/2019, 03/15 Hepatitis B Screening Completed 03/02/2021 Medical Devices Implanted Type Area Math And Sciences Department Chair Device Identifier Shelf Expiration Date Model / Serial / Lot Stent Ureteral Contour Percuflex Hydroplus Pigtail Curve L30 Cm Od6 Fr Taper Tip Bladder Tra Low Profile Large Inner Lumen Latex Free - [id number] Implanted:Qty: 1 on 04/29/2017 by Radha Mcneil MD at [facility] Stent Right: Ureter [employer] [place] 2020 180-225 / / [id number] Procedures Procedure Name Priority Date/Time Associated Diagnosis Comments BASIC METABOLIC PANEL Routine 03/31/2022 9:15 AM CONVEYOR MONITOR Foot infection HEMOGLOBIN A1C Routine 04/16/2017 10:04 AM CONVEYOR MONITOR from Last 3 Months or Most Recently Relevant to Health Maintenance Results * (ABNORMAL) Basic metabolic panel (03/31/2022 9:15 AM CONVEYOR MONITOR) Glucose 149(H) 65 - 99 mg/dL [facility] Comment: Fasting reference interval For someone without known [...] [facility] Blood 03/31/2022 9:15 AM CONVEYOR MONITOR 03/31/2022 9:15 AM CONVEYOR MONITOR Willis JADE LAB BLOOD ORDERABLES F inal Result [facility] [address] [address] [place] [id number] * Hemoglobin A1c (04/16/2017 10:04 AM CONVEYOR MONITOR) Hgb A1C 5.3 4.0 - 6.0 % [facility] Blood specimen (specimen) 04/16/2017 10:04 AM CONVEYOR MONITOR 04/16/2017 10:57 AM CONVEYOR MONITOR Narrative [facility] - 04/16/2017 11:27 AM CONVEYOR MONITOR us Radha Mcneil MD LAB BLOOD ORDERABLES Final Re sult [facility] [address] Department of Laboratories [place], [place] [id number] from Last 3 Months or Most Recently Relevant to Health Maintenance Insurance [facility] MEDICARE MEDICARE [facility] MEDICARE [facility] Advance Directives For more information, please contact: [phone] Documents on File Type Date Recorded Patient Mold Yard Worker Expl anation ADVANCE DIRECTIVE 04/27/2017 5:45 AM ADVANCE DIRECTIVE 04/27/2017 Advance Di rective Checklist * Full Code (Latest Code Status on File) Date Activated Date Inactivated Comments 04/27/2017 6:44 PM 04/30/2017 2:14 PM Care Teams Care Aid Relationship Specialty Start Date End Date Isacc Lee MD [address] [address] PCP - General Family Medicine 10/03/20
--- OUTSIDE RECORDS SUMMARY | 2024-07-19 10:04 | XMS_ITS | Clinical Summary ---
Author Organization [facility] sierra Address [address] [place] [address] Phone Care Team Providers Care Waterway Traffic Checker Name Role Phone Isacc Lee MD Primary Care Provider [phone] Allergies Active Allergy Reactions Criticality Noted Date Comments Ciprofloxacin Iodinated Contrast Media Hives Medium 04/27/2017 Penicillins Cough Low Prednisone Sulfa Antibiotics Sulfamethoxazole Hives Medium 03/20/2019 Trimethoprim 03/20/2019 Medications aspirin (ASPIR-LOW) 81 MG EC tablet 1 daily 0 09/19/2017 Active metoprolol succinate XL (TOPROL-XL) 50 MG 24 hr tablet 1 daily 0 09/19/2017 Act sondra simvastatin (ZOCOR) 20 MG tablet 1 daily 0 09/19/2017 Active FIBER ADULT GUMMIES 2 g chewable tablet 1 daily 0 09/19/2017 Act sondra Multiple Vitamin (MULTIVITAMIN) capsule 1 daily 0 09/19/2017 Active Coenzyme Q10 (COQ10) 100 MG capsule 1 daily 0 09/19/2017 Active Lutein-Zeaxanthi n 25-5 MG capsule 1 daily 0 09/19/2017 Active glucosamine-kash droitin 500-400 MG tablet Take 1 tablet by [...] (one) time each day 10/22/2019 Active Niacin, Antihyperlipidem ic, (Niacor) 500 MG tablet Take 500 mg by mouth daily Active Active Problems Problem Noted Date Diagnosed Date Hematuria 03/16/2019 Urinary tract infection 03/16/2019 Chronic kidney disease, Stage IV (severe) 2017 Calculus of kidney 09/20/2017 Essential (primary) hypertension 09/20/2017 Atherosclerotic heart diseas e of [place] coronary artery without angina pectoris 09/20/2017 Hypercalcemia 09/20/2017 Degeneration of lumbar intervertebral disc 04/16 Gastroesophageal reflux disease 04/16/2017 Hypothyroidism 04/16/2017 History of placement of stent for coronary arter y disease 10/01/2016 Resolved Problems Problem Noted Date Diagnosed Date Resolved Date Type 2 diabetes mellitus without complication 09/21/19 18 02/01/2020 Immunizations Immunization Administration Dates Next Due Fluzone High-Dose 11/05/2019 [...] drink = 0.6 oz pur e alcohol) Comments Unknown Sex and Gender Information Value Date Recorded Sex Assigned at Not on file Legal Sex Female 7:36 AM MST Gender Identity Not on file Sexual Orientation Not on file Last Filed Vital Signs Vital Sign Reading Time Taken Comments Blood Pressure 122/80 10/27/2021 11:11 AM CDT Pulse 72 10/27/2021 11:11 AM CDT Temperature 36.3 C (97.4 F) 10/27/2021 11:11 AM CDT Respiratory Rate - - Oxygen Saturation - - Inhaled Oxygen Concentration - - Weight 100 kg (221 lb) 10/27/2021 11:11 AM CDT Height 162.6 cm (5' 4 ) 10/27/2021 11:11 AM CDT Body Mass Index 37.93 10/27/2021 11:11 AM CDT Plan of Treatment Health Maintenance Due Date Last Done Comments Influenza Vaccine (Season Ended) 2024 12/29/2020, 12/24/2018, 12/14/2012, Additional history exists Pneumococcal PPSV23/PCV13 65 + Years / Low and Medium Risk Completed 03/24/2019, 03/24/2018, 12/29/2013, Additional history exists Insurance MEDICARE [facility] Care Teams Waterway Traffic Checker Relationship Specialty Start Date End Date Isacc Lee MD [address] [place] [address] PCP - General Internal Medicine 07/31/20
--- OUTSIDE RECORDS SUMMARY | 2024-07-19 10:04 | XMS_ITS | Encounter Summary ---
Author Organization [facility] utions Address [address] [place] [address] Phone Care Team Providers Care Hydraulic Mechanic Name Role Phone Isacc Lee MD Primary Care Provider [phone] Encounter Details Date Type Department Care Team (Late st Contact Info) Description 03/04/2020 [facility] Nephrology and Hypertension [address] [facility], [address] [address] Rafy Norman MD [address] [facility], [address] [place] [address] Social History Tobacco Use Types Packs/Day Years [...] encounter Miscellaneous Notes * Telephone Encounter - Rfay Norman MD - 03/04/2020 5:11 PM CST [...] on filedocumented in this encounter Care Teams Hydraulic Mechanic Relationship Specialty Start Date End Date Isacc Lee MD [address] [place] [address] PCP - General Internal Medicine 07/31/20 documented as of this encounter
--- OUTSIDE RECORDS SUMMARY | 2024-07-19 10:04 | XMS_ITS | Clinical Summary ---
Author Organization [facility] Address [facility] [place] [address] Care Team Providers Care Heritage Consultant Name Role Phone Unavailable Primary Care Provider [...] Td Vaccines ( 1 - Tdap) 02/11/1954 Pneumococcal Vaccine: 50+ Ye ars (1 of 1 - PCV) 1987 Zoster Vaccines (1 of 2) 1987 RSV Immunization or 60+ Years (1 - 1-dose 75+ series) 02/11/2012 COVID-19 Vaccine ( - 2023-2 5 season) 2023 Meningococcal B Vaccine Aged Out No l onger eligible based on patient's age to complete this topic Meningococcal Vaccine Aged Out No samantha julia eligible based on patient's age to complete this topic RSV Immunizations Under 20 Months Aged Out No longer eligible based on patient's age to complete this topic
--- OUTSIDE RECORDS SUMMARY | 2024-07-19 10:04 | XMS_ITS | Referral Summary ---
Author Organization [facility] [address] [facility] [address] Address [address] [place] [address] Care Team Providers Care Er Tech Name Role Phone Isacc Lee MD Primary Care Provider [phone] Encounters Date Type Department Care Team Description 06/19/2024 10:30 AM CDT Office Visit [facility] Cardiology [address] [place] [address] Anitra Mccormick NP Coronary artery disease involving [place] coronary artery of [place] heart without angina pectoris (Primary Dx) from Last 3 Months Allergies Active Allergy Reactions Criticality Noted Date [...] treat. She is scheduled with an outside voting machine mechanic on 08/06. Will place referral with Dermatology at [facility] for possible sooner appointment. - In the [...] 10/01/2016 S/P coronary artery stent placement 10/01/2016 [place] (myocardial infarction) 03/15/2014 Immunizations Immunization Administration Dates Next Due Influenza, [...] on file Legal Sex Female 7:39 PM THERAPIST Gender Identity Not on file Sexual Orientation [...] 06/19/2024 10:56 AM CDT Plan of Treatment Not on file Medical Devices Implanted Type Area Dipper And Drier Device Identifier Shelf Expiration Date Model / Serial / Lot Stent Ureteral Contour Percuflex Hydroplus Pigtail Curve L30 Cm Od6 Fr Taper Tip Bladder Tra Low Profile Large Inner Lumen Latex Free - [id number] Implanted:Qty: 1 on 04/29/2017 by Radha Mcneil MD at [facility] Stent Right: Ureter [employer] [place] 2020 180-225 / / [id number] Procedures Procedure Name Priority Date/Time Associated Diagnosis Comments BASIC METABOLIC PANEL Routine 03/31/2022 9:15 AM THERAPIST Foot infection HEMOGLOBIN A1C Routine 04/16/2017 10:04 AM THERAPIST from Last 3 Months or Most Recently Relevant to Health Maintenance Results * (ABNORMAL) Basic metabolic panel (03/31/2022 9:15 AM THERAPIST) Glucose 149(H) 65 - 99 mg/dL [facility] [...] [facility] Blood 03/31/2022 9:15 AM THERAPIST 03/31/2022 9:15 AM THERAPIST us Willis JADE LAB BLOOD ORDERABLES F inal Result [facility] [address] [address] [id number] * Hemoglobin A1c (04/16/2017 10:04 AM THERAPIST) Hgb A1C 5.3 4.0 - 6.0 % [facility] Blood specimen (specimen) 04/16/2017 10:04 AM THERAPIST 04/16/2017 10:57 AM THERAPIST Narrative [facility] - 04/16/2017 11:27 AM THERAPIST us Radha Mcneil MD LAB BLOOD ORDERABLES Final Re sult Performing Organization Address City/[facility]/ZIP Co de Phone Number [facility] [address] Department [place] [address] from Last 3 Months or Most Recently Relevant to Health Maintenance Insurance [facility] MEDICARE MEDICARE [facility] MEDICARE AARP Advance Directives For more information, please contact: [phone] Documents on File Type Date Recorded Patient Material Attendant Expl anation ADVANCE DIRECTIVE 04/27/2017 5:45 AM ADVANCE DIRECTIVE 04/27/2017 Advance Di rective Checklist * Full Code (Latest Code Status on File) Date Activated Date Inactivated Comments 04/27/2017 6:44 PM 04/30/2017 2:14 PM Care Teams Er Tech Relationship Specialty Start Date End Date Isacc Lee MD [address] [place] [address] PCP - General Family Medicine 10/03/20
== END 2024-07-19 09:36 | disposition home or self-care (01) ==
LOC: ANHIMG 09:36
PROVIDERS: PCP Nurse Practitioner Family; Visit Provider Nurse Practitioner Family
DX: Z78.0 Asymptomatic menopausal state (principal)
CPT/HCPCS: 77080

== ENCOUNTER 2024-07-25 09:48 | Outpatient (CLI) | payer MEDICARE, SELFPAY ==
--- NOTE | ~2024-07-25 | XR_ITS ---
EXAM: XR abdomen/kub 1V DATE: 07/25/2024 10:20 HISTORY: History of kidney stones . COMPARISON: 11/02/2023; CT abdomen pelvis 05/18/2021. FINDINGS: Clear lung bases. Normal bowel gas pattern. No organomegaly. Atherosclerotic vascular calc ifications. 6 moderate calcification over the atrophic right renal shadow. Pelvic phleboliths. Severe lumbar degenerative disc disease. Bilateral hip osteoarthritis. IMPRESSION: Stable right nephrolithiasis. Reviewed, dictated and finalized at location K.
--- OUTSIDE RECORDS SUMMARY | 2024-07-25 10:00 | XMS_ITS | Clinical Summary ---
Author Organization [facility] [address] Address [address] [place] [address] Care Team Providers Care Tile Picker Name Role Phone Isacc Lee MD Primary Care Provider [phone] Allergies Active Allergy Reactions Criticality Noted Date [...] treat. She is scheduled with an outside fixed income director on 08/06. Will place referral with Dermatology at [facility] for possible sooner appointment. - In [...] stent placement 10/01/2016 [place] (myocardial infarction) 03/15/2014 Encounters Date Type Department Care Team Description 06/19/2024 10:30 AM CDT Office Visit [facility] Cardiology [address] [place] [address] Anitra Mccormick NP Coronary artery disease involving [place] coronary artery of [place] heart without angina pectoris (Primary Dx) from [...] mellitus (HCC) Hypothyroidism Asthma Hypertension Stone, kidney [place] (myocardial infarction) (HCC) 2015 Cellulitis Family History [...] on file Legal Sex Female 7:39 PM USER SUPPORT ANALYST Gender Identity Not on file Sexual Orientation [...] Completed 03/02/2021 Medical Devices Implanted Type Area Animal Tech Device Identifier Shelf Expiration Date Model / Serial / Lot Stent Ureteral Contour Percuflex Hydroplus Pigtail Curve L30 Cm Od6 Fr Taper Tip Bladder Tra Low Profile Large Inner Lumen Latex Free - [id number] Implanted:Qty: 1 on 04/29/2017 by Radha Mcneil MD at [facility] Stent Right: Ureter [employer] Cand[place] 2020 180-225 / / [id number] Procedures Procedure Name Priority Date/Time Associated Diagnosis Comments BASIC METABOLIC PANEL Routine 03/31/2022 9:15 AM USER SUPPORT ANALYST Foot infection HEMOGLOBIN A1C Routine 04/16/2017 10:04 AM USER SUPPORT ANALYST from Last 3 Months or Most Recently Relevant to Health Maintenance Results * (ABNORMAL) Basic metabolic panel (03/31/2022 9:15 AM USER SUPPORT ANALYST) Glucose 149(H) 65 - 99 mg/dL [facility] [...] [facility] Blood 03/31/2022 9:15 AM USER SUPPORT ANALYST 03/31/2022 9:15 AM USER SUPPORT ANALYST Willis JADE LAB BLOOD ORDERABLES F inal Result [facility] [address] [address] [id number] * Hemoglobin A1c (04/16/2017 10:04 AM USER SUPPORT ANALYST) Hgb A1C 5.3 4.0 - 6.0 % [facility] Blood specimen (specimen) 04/16/2017 10:04 AM USER SUPPORT ANALYST 04/16/2017 10:57 AM USER SUPPORT ANALYST Narrative [facility] - 04/16/2017 11:27 AM USER SUPPORT ANALYST us Radha Mcneil MD LAB BLOOD ORDERABLES Final Re sult [facility] [address] Department of Laboratories [place], [place] [id number] from Last 3 Months or Most Recently Relevant to Health Maintenance Insurance [facility] MEDICARE MEDICARE [facility] MEDICARE [facility] Advance Directives For more information, please contact: [phone] Documents on File Type Date Recorded Patient Solo Musician Expl anation ADVANCE DIRECTIVE 04/27/2017 5:45 AM ADVANCE DIRECTIVE 04/27/2017 Advance Di rective Checklist * Full Code (Latest Code Status on File) Date Activated Date Inactivated Comments 04/27/2017 6:44 PM 04/30/2017 2:14 PM Care Teams Tile Picker Relationship Specialty Start Date End Date Isacc Lee MD [address] [address] PCP - General Family Medicine 10/03/20
--- OUTSIDE RECORDS SUMMARY | 2024-07-25 10:00 | XMS_ITS | Clinical Summary ---
Author Organization [facility] Address [address] [place] [address] Phone Care Team Providers Care Bid Manager Name Role Phone Isacc Lee MD Primary Care Provider [phone] Allergies Active Allergy Reactions Criticality Noted Date [...] hypertension 09/20/2017 Atherosclerotic heart diseas e of [place] coronary artery without angina pectoris 09/20/2017 Hypercalcemia [...] 03/24/2018, 12/29/2013, Additional history exists Insurance MEDICARE [facility] Care Teams Bid Manager Relationship Specialty Start Date End Date Isacc Lee MD [address] [place] [address] PCP - General Internal Medicine 07/31/20
--- OUTSIDE RECORDS SUMMARY | 2024-07-25 10:00 | XMS_ITS | Encounter Summary ---
Author Organization [facility]ions Address [address] [place] [address] Phone Care Team Providers Care Job Setter Name Role Phone Isacc Lee MD Primary Care Provider [phone] Encounter Details Date Type Department Care Team (Late st Contact Info) Description 03/04/2020 [facility] Nephrology and Hypertension [address] [facility], [address] [address] Rafy Norman MD [address] [facility], [address] [place] [address] Social History Tobacco Use Types Packs/Day Years [...] on filedocumented in this encounter Care Teams Job Setter Relationship Specialty Start Date End Date Isacc Lee MD [address] [place] [address] PCP - General Internal Medicine 07/31/20 documented as of this encounter
--- OUTSIDE RECORDS SUMMARY | 2024-07-25 10:00 | XMS_ITS | CONTINUITY OF CARE DOCUMENT ---
Author Name evangelinamisaelfabiano Address Unknown Organization [facility] Address [address] [facility] [address] [place] [address] Phone [phone] Care Team Providers Care Ice Resurfacing Machine Operators Name Role Phone Vishal VERA, Jesus Unavailable NICK VERA, SO Hair Unavailable [phone] INSURANCE PROVIDERS Payer name Policy type / Coverage type [place] red libertarian ID AARP [employer] insurance [employer] [facility] [id number] [place] MEDICARE Medicare [id number]
--- OUTSIDE RECORDS SUMMARY | 2024-07-25 10:00 | XMS_ITS | Clinical Summary ---
Author Organization [facility] Address [facility] [place] [address] Care Team Providers Care Engraver Hand Hard Metals Name Role Phone Unavailable Primary Care Provider [...]
--- OUTSIDE RECORDS SUMMARY | 2024-07-25 10:00 | XMS_ITS | Referral Summary ---
Author Organization [facility] [address] [facility] [address] Address [address] [place] [address] Care Team Providers Care Financial Services Technician Name Role Phone Isacc Lee MD Primary Care Provider [phone] Encounters Date Type Department Care Team Description 06/19/2024 10:30 AM CDT Office Visit [facility] Cardiology [address] [place] [address] Anitra Mccormick NP Coronary artery disease involving [place] coronary artery of [place] heart without angina pectoris (Primary Dx) from [...] treat. She is scheduled with an outside physical fitness trainer on 08/06. Will place referral with Dermatology at [facility] for possible sooner appointment. - In [...] 10/01/2016 S/P coronary artery stent placement 10/01/2016 [place] (myocardial infarction) 03/15/2014 Immunizations Immunization Administration Dates [...] on file Legal Sex Female 7:39 PM MANAGER RENTAL Gender Identity Not on file Sexual Orientation [...] on file Medical Devices Implanted Type Area Any Commodity Buyer Device Identifier Shelf Expiration Date Model / Serial / Lot Stent Ureteral Contour Percuflex Hydroplus Pigtail Curve L30 Cm Od6 Fr Taper Tip Bladder Tra Low Profile Large Inner Lumen Latex Free - [id number] Implanted:Qty: 1 on 04/29/2017 by Radha Mcneil MD at [facility] Stent Right: Ureter [employer] [place] 2020 180-225 / / [id number] Procedures Procedure Name Priority Date/Time Associated Diagnosis Comments BASIC METABOLIC PANEL Routine 03/31/2022 9:15 AM MANAGER RENTAL Foot infection HEMOGLOBIN A1C Routine 04/16/2017 10:04 AM MANAGER RENTAL from Last 3 Months or Most Recently Relevant to Health Maintenance Results * (ABNORMAL) Basic metabolic panel (03/31/2022 9:15 AM MANAGER RENTAL) Glucose 149(H) 65 - 99 mg/dL [facility] [...] [facility] Blood 03/31/2022 9:15 AM MANAGER RENTAL 03/31/2022 9:15 AM MANAGER RENTAL us Willis JADE LAB BLOOD ORDERABLES F inal Result [facility] [address] [address] [address] * Hemoglobin A1c (04/16/2017 10:04 AM MANAGER RENTAL) Hgb A1C 5.3 4.0 - 6.0 % [facility] Blood specimen (specimen) 04/16/2017 10:04 AM MANAGER RENTAL 04/16/2017 10:57 AM MANAGER RENTAL Narrative [facility] - 04/16/2017 11:27 AM MANAGER RENTAL us Radha Mcneil MD LAB BLOOD ORDERABLES Final Re sult Performing Organization Address City/[facility]/ZIP Co de Phone Number [facility] [address] Department [place] [address] from Last 3 Months or Most Recently Relevant to Health Maintenance Insurance [facility] MEDICARE MEDICARE [facility] MEDICARE AARP Advance Directives For more information, please contact: [phone] Documents on File Type Date Recorded Patient [facility] Attendant Expl anation ADVANCE DIRECTIVE 04/27/2017 5:45 AM ADVANCE DIRECTIVE 04/27/2017 Advance Di rective Checklist * Full Code (Latest Code Status on File) Date Activated Date Inactivated Comments 04/27/2017 6:44 PM 04/30/2017 2:14 PM Care Teams Financial Services Technician Relationship Specialty Start Date End Date Isacc Lee MD [address] [place] [id number] PCP - General Family Medicine 10/03/20
== END 2024-07-25 09:49 | disposition home or self-care (01) ==
PROVIDERS: PCP Nurse Practitioner Family; Visit Provider Physician Assistant
DX: N20.0 Calculus of kidney (principal); Z87.442 Personal history of urinary calculi
CPT/HCPCS: 74018

== ENCOUNTER 2025-01-09 15:45 | Outpatient (CLI) | payer MEDICARE, SELFPAY ==
--- NOTE | ~2025-01-09 | MM_ITS ---
EXAMINATION: MM screening [facility] BI w [place] HISTORY: Screening TECHNIQUE: Craniocaudal and mediolateral oblique 3-D tomosynthesis images were obtained and synthetic 2-D images were generated. CAD analysis was submitted and interpreted. COMPARISON: Comparison to multiple prior studies sequentially, with oldest reviewed study dated 08/09/2018. BREAST PARENCHYMAL COMPOSITION: Dense: The breasts are heterogeneously dense, which may obscure small masses FINDINGS: Stable architectural distortion upper outer quadrant of the right breast, consistent with previous benign biopsy site. There are coarse surrounding calcifications, likely secondary to secretory and possible fat necrosis calcifications. There is no evidence of suspicious mass, calcification, or architectural distortion to suggest malignancy in either breast. There has been no suspicious interval change. IMPRESSION: 1. No mammographic evidence of malignancy. 2. Recommend routine screening mammography in one year. BI-RADS Category 2: Benign finding(s). Reviewed, dictated and finalized at location B.
--- OUTSIDE RECORDS SUMMARY | 2025-01-09 17:44 | XMS_ITS | Clinical Summary ---
Author Organization [facility] [address] Address [address] [place] [address] Care Team Providers Care Tent Assembler Name Role Phone MercadoMary RAMONA Primary Care Provider [phone] Allergies Active Allergy Reactions Criticality Noted Date Comments Benzalkonium Chloride Rash Medium 06/28/2023 1+ Cocamide Alyssia Rash Medium 06/28/2023 1+ Gadolinium-Containing Contrast Media Hives Medium 06/02/2021 Iodine Hives Medium 06/02/2021 Iodine And Iodide Containing Products Hives Medium [...] (1 mg total) by mouth daily Active albuterol HFA (PROVENTIL HFA,VENTOLIN HFA,PROAIR HFA) 90 mcg/actuation inhaler INHALE 1 TO 2 PUFFS BY MOUTH EVERY 4 HOURS NEEDED FOR WHEEZE OR FOR SHORTNESS OF BREATH 5 Active metoprolol XL (TOPROL-XL) 50 mg extended release tablet TAKE 1 TABLET BY MOUTH EVERY DAY 90 tablet 1 5 Active simvastatin (ZOCOR) 20 mg tablet TAKE 1 TABLET BY MOUTH EVERYDAY AT BEDTIME 90 tablet 5 Active Active Problems Problem Noted Date [...] treat. She is scheduled with an outside mechanics handyman on 08/06. Will place referral with Dermatology at [facility] for possible sooner appointment. - In the [...] 10/01/2016 S/P coronary artery stent placement 10/01/2016 [place] (myocardial infarction) 03/15/2014 Encounters Date Type Department Care Team Description 12/28/2024 11:15 AM CDT Office Visit [facility] Cardiology [address] [place] [address] Narciso Juan MD S/P coronary artery stent placement (Primary Dx); Coronary artery disease involving [place] coronary artery of [place] heart without angina pectoris 10/11/2024 8:45 AM CDT Office Visit 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 Gender Identity Not on file Sexual Orientation Not on file Obstetrics History Last Filed Vital Signs Vital Sign Reading Time Taken Comments Blood Pressure 138/78 12/28/2024 10:52 AM CDT Pulse 57 12/28/2024 10:52 AM CDT Temperature 36.8 C (98.3 F) 09/01/2021 12:36 PM CDT Respiratory Rate 15 09/28/2019 9:26 AM CDT Oxygen Saturation 95% 12/28/2024 10:52 AM CDT Inhaled Oxygen Concentration - - Weight 103 kg (227 lb) 12/28/2024 10:52 AM CDT Height 162.6 cm (5' 4) 12/28/2024 10:52 AM CDT Body Mass Index 38.96 12/28/2024 10:52 AM CDT Plan of Treatment Health Maintenance Due Date Last Done Comments Albumin Creatinine Ratio, Urine 1937 Depression Screening 1937 Osteoporosis Screening-Bone Density Scan 1937 Dilated Eye Exam 1937 Foot Exam 1937 Lipid Panel 1937 DTaP/Tdap/Td Vaccine (1 - Tdap) 02/11/1948 Zoster Vaccine (1 of 2) 1987 Well Visit 65+ 2002 Hemoglobin A1C 10/14/2017 04/16/2017 Fall Risk Assessment 09/27/2020 09/28/2019 eGFR 03/31/2023 03/31/2022, 04/15, 04/29/2017, Additional history exists Covid-19 Vaccine (4 - 2024-2 6 season) 2024 01/05/2021, 05/30/2020, 05/02/2020 Influenza Vaccine (#1) 2024 , 12/24/2018, 10/21/2017, Additional history exists Pneumococcal vaccine 65+ Completed 03/24/2019, 03/15 Hepatitis B Screening Completed 03/02/2021, 021 Medical Devices Implanted Type Area Broker Device Identifier Shelf Expiration Date Model / Serial / Lot Stent Ureteral Contour Percuflex Hydroplus Pigtail Curve L30 Cm Od6 Fr Taper Tip Bladder Tra Low Profile Large Inner Lumen Latex Free - [id number] Implanted:Qty: 1 on 04/29/2017 by Radha Mcneil MD at [facility] Stent Right: Ureter [employer] [place] 2020 180-225 / / [id number] Procedures Procedure Name Priority Date/Time Associated Diagnosis Comments BASIC METABOLIC PANEL Routine 03/31/2022 9:15 AM FIXED WING AIRCRAFT CREW CHIEF Foot infection HEMOGLOBIN A1C Routine 04/16/2017 10:04 AM FIXED WING AIRCRAFT CREW CHIEF from Last 3 Months or Most Recently Relevant to Health Maintenance Results * (ABNORMAL) Basic metabolic panel (03/31/2022 9:15 AM FIXED WING AIRCRAFT CREW CHIEF) Glucose 149(H) 65 - 99 mg/dL [facility] [...] [facility] Blood 03/31/2022 9:15 AM FIXED WING AIRCRAFT CREW CHIEF 03/31/2022 9:15 AM FIXED WING AIRCRAFT CREW CHIEF us Willis JADE LAB BLOOD ORDERABLES F inal Result [facility] [address] [address] [place] [address] * Hemoglobin A1c (04/16/2017 10:04 AM FIXED WING AIRCRAFT CREW CHIEF) Hgb A1C 5.3 4.0 - 6.0 % [facility] Blood specimen (specimen) 04/16/2017 10:04 AM FIXED WING AIRCRAFT CREW CHIEF 04/16/2017 10:57 AM FIXED WING AIRCRAFT CREW CHIEF Narrative [facility] - 04/16/2017 11:27 AM FIXED WING AIRCRAFT CREW CHIEF us Radha Mcneil MD LAB BLOOD ORDERABLES Final Re sult [facility] [address] Department [place] [address] from Last 3 Months or Most Recently Relevant to Health Maintenance Insurance [facility] MEDICARE MEDICARE [facility] [place] [place] [address] MEDICARE [facility] Advance Directives For more information, please contact: [phone] Documents on File Type Date Recorded Patient Printing Agent Expl anation ADVANCE DIRECTIVE 04/27/2017 5:45 AM ADVANCE DIRECTIVE 04/27/2017 Advance Di rective Checklist * Full Code (Latest Code Status on File) Date Activated Date Inactivated Comments 04/27/2017 6:44 PM 04/30/2017 2:14 PM Care Teams Tent Assembler Relationship Specialty Start Date End Date Mary Mercado NP [address] [facility] [address] [place] [address] PCP - General Family Medicine 12/28/24
--- OUTSIDE RECORDS SUMMARY | 2025-01-09 17:44 | XMS_ITS | Clinical Summary ---
Author Organization [facility] Address [address] [place] [address] Phone Care Team Providers Care Neighborhood Coordinator Name Role Phone Isacc Lee MD Primary Care Provider [phone] Allergies Active Allergy Reactions Criticality Noted Date [...] hypertension 09/20/2017 Atherosclerotic heart diseas e of [place] coronary artery without angina pectoris 09/20/2017 Hypercalcemia [...] 11:11 AM CDT Height 162.6 cm (5' 4) 10/27/2021 11:11 AM CDT Body Mass Index 37.93 10/27/2021 11:11 AM CDT Plan of Treatment Health Maintenance Due Date Last Done Comments Influenza Vaccine (#1) 2024 , 12/24/2018, 12/14/2012, Additional history exists Pneumococcal PPSV23/PCV13 65 + Years / Low and Medium Risk Completed 03/24/2019, 03/24/2018, 12/29/2013, Additional history exists Insurance MEDICARE [facility] Care Teams Neighborhood Coordinator Relationship Specialty Start Date End Date Isacc Lee MD [address] [place] [id number] PCP - General Internal Medicine 07/31/20
--- OUTSIDE RECORDS SUMMARY | 2025-01-09 17:44 | XMS_ITS | Encounter Summary ---
Author Organization [facility] Address [address] [place] [address] Phone Care Team Providers Care Trials Manager Name Role Phone Isacc Lee MD Primary Care Provider [phone] Encounter Details Date Type Department Care Team (Late st Contact Info) Description 03/04/2020 [facility] [address] [facility], [address] [address] Rafy Norman MD [address] [facility], [address] [place] [address] Social History Tobacco Use Types Packs/Day Years [...] on filedocumented in this encounter Care Teams Trials Manager Relationship Specialty Start Date End Date Isacc Lee MD [address] [place] [address] PCP - General Internal Medicine 07/31/20 documented as of this encounter
--- OUTSIDE RECORDS SUMMARY | 2025-01-09 17:44 | XMS_ITS | Clinical Summary ---
Author Organization [facility] Address On license of [facility] [place] [address] Care Team Providers Care Dirt Contractor Name Role Phone Unavailable Primary Care Provider [...] 75+ series) 02/11/2012 COVID-19 Vaccine ( - 2024-2 6 season) 2024 Influenza Adult (#1) 2024 Hepatitis A Vaccines Aged Out No long er eligible based on patient's age to complete this topic Meningococcal B Vaccine Aged Out No l onger eligible based on patient's age to complete this topic Meningococcal Vaccine Aged Out No samantha julia eligible based on patient's age to complete this topic RSV Immunizations Under 20 Months Aged Out No longer eligible based on patient's age to complete this topic
== END 2025-01-09 15:46 | disposition home or self-care (01) ==
LOC: ANHFOHIMG 15:47
PROVIDERS: PCP Nurse Practitioner Family; Visit Provider Nurse Practitioner Family
DX: Z12.31 Encounter for screening mammogram for malignant neoplasm of breast (principal)
CPT/HCPCS: 77063; 77067

== ENCOUNTER 2025-01-16 09:16 | Outpatient (CLI) | payer MEDICARE, SELFPAY ==
[2025-01-16 10:14] LABS: Anion Gap 8 mmol/L (4-12); Blood Urea Nitrogen 21 mg/dL (7-17); Calcium 9.4 mg/dL (8.4-10.2); Carbon Dioxide 22 mmol/L (22-30); Chloride 106 mmol/L (98-107); Estimated Glomerular Filt Rate 39; Glucose 199 mg/dL (65-110); Potassium 4.9 mmol/L (3.4-5.0); Sodium 136 mmol/L (137-145)
--- OUTSIDE RECORDS SUMMARY | 2025-01-16 10:17 | XMS_ITS | Clinical Summary ---
Author Organization [facility] Address [facility] [place] [address] Care Team Providers Care Screen Printing Cloth Spreader Name Role Phone Unavailable Primary Care Provider [...]
--- OUTSIDE RECORDS SUMMARY | 2025-01-16 10:18 | XMS_ITS | Clinical Summary ---
Author Organization [facility] [address] Address [address] [place] [address] Care Team Providers Care Dish Carrier Name Role Phone MercadoMary RAMONA Primary Care Provider Allergies Active Allergy Reactions Criticality Noted Date [...] treat. She is scheduled with an outside critical care physician assistant on 08/06. Will place referral with Dermatology at [facility] for possible sooner appointment. - In the [...] Description 12/28/2024 11:15 AM CDT Office Visit [facility] Cardiology [address] [place] [address] Narciso Juan MD S/P coronary artery stent placement (Primary Dx); Coronary artery disease involving [place] coronary artery of [place] heart without angina pectoris from Last 3 Months Immunizations Immunization Administration [...] diabetes mellitus Hypothyroidism Asthma Hypertension Stone, kidney [place] (myocardial infarction) (HCC) 2014 Cellulitis Family History Medical History Relation Name [...] on file Legal Sex Female 7:39 PM CAFE MANAGER Gender Identity Not on file Sexual Orientation [...] 04/15, 04/29/2017, Additional history exists Covid-19 Vaccine ( - 2024-2 6 season) 2024 01/05/2021, 05/30/2020, 05/02/2020 Influenza Vaccine (#1) 2024 , 12/24/2018, 10/21/2017, Additional history exists Pneumococcal vaccine 65+ Completed 03/24/2019, 03/15 Hepatitis B Screening Completed 03/02/2021, 021 Medical Devices Implanted Type Area Analyst Microbiology Lab Device Identifier Shelf Expiration Date Model / Serial / Lot Stent Ureteral Contour Percuflex Hydroplus Pigtail Curve L30 Cm Od6 Fr Taper Tip Bladder Tra Low Profile Large Inner Lumen Latex Free - [id number] Implanted:Qty: 1 on 04/29/2017 by Radha Mcneil MD at [facility] Stent Right: Ureter [employer] [place] 2020 180-225 / / [id number] Procedures Procedure Name Priority Date/Time Associated Diagnosis Comments BASIC METABOLIC PANEL Routine 03/31/2022 9:15 AM CAFE MANAGER Foot infection HEMOGLOBIN A1C Routine 04/16/2017 10:04 AM CAFE MANAGER from Last 3 Months or Most Recently Relevant to Health Maintenance Results * (ABNORMAL) Basic metabolic panel (03/31/2022 9:15 AM CAFE MANAGER) Glucose 149(H) 65 - 99 mg/dL [facility] [...] The eGFR is based on the CKD-EPI 202 equation. To calculate the new eGFR from [...] [facility] Blood 03/31/2022 9:15 AM CAFE MANAGER 03/31/2022 9:15 AM CAFE MANAGER us Willis JADE LAB BLOOD ORDERABLES F inal Result [facility] [address] [address] [address] * Hemoglobin A1c (04/16/2017 10:04 AM CAFE MANAGER) Hgb A1C 5.3 4.0 - 6.0 % [facility] Blood specimen (specimen) 04/16/2017 10:04 AM CAFE MANAGER 04/16/2017 10:57 AM CAFE MANAGER Narrative [facility] - 04/16/2017 11:27 AM CAFE MANAGER us Radha Mcneil MD LAB BLOOD ORDERABLES Final Re sult [facility] [address] Department [place] [address] from Last 3 Months or Most Recently Relevant to Health Maintenance Insurance [facility] MEDICARE MEDICARE [facility] MEDICARE AARP Advance Directives For more information, please contact: [phone] Documents on File Type Date Recorded Patient Pediatric Nephrologist Expl anation ADVANCE DIRECTIVE 04/27/2017 5:45 AM ADVANCE DIRECTIVE 04/27/2017 Advance Di rective Checklist * Full Code (Latest Code Status on File) Date Activated Date Inactivated Comments 04/27/2017 6:44 PM 04/30/2017 2:14 PM Care Teams Dish Carrier Relationship Specialty Start Date End Date Mary Mercado NP [id number] [address] PCP - General Family Medicine 12/28/24
== END 2025-01-16 09:17 | disposition home or self-care (01) ==
LOC: ANHLAB 09:17
PROVIDERS: PCP Nurse Practitioner Family; Visit Provider Internal Medicine Nephrology
DX: N18.32 Chronic kidney disease, stage 3b (principal)
CPT/HCPCS: 36415; 80048

== ENCOUNTER 2025-02-21 15:53 | Outpatient (CLI) | payer MEDICARE, SELFPAY ==
--- OUTSIDE RECORDS SUMMARY | 2025-02-21 15:00 | XMS_ITS | Encounter Summary ---
Author Organization [facility] LAURA Palomo [facility] Address [address] [place] [address] Care Team Providers Care Greens Picker Name Role Phone Unavailable Primary Care Provider Unavailabl e Reason for Referral * Radiology Services (Routine) - Authorized Specialty Diagnoses / Procedures Referred By Contac t Referred To Contact Diagnoses Other secondary thrombocytopenia Procedures US ABDOMEN COMPLETE Corby Galindo MD [address] [place] [address] Phone: tel: fax: Referral ID Status Reason Start Date Expiration Date V isits Requested Visits Authorized [id number] Authorized 02/21/2025 03/24/2026 1 1 TECHNICIAN Reason for Visit * Reason Comments Establish Care Encounter Details Date Type Department Care Team (Late st Contact Info) Description 02/21/2025 3:00 PM EYE TECHNICIAN Office Visit [facility] Oncology and Hematology - [place] [address] [facility] [address] [place] [address] Croby Galindo MD [address] [place] [address] Chronic anemia (Primary Dx); Other secondary thrombocytopenia Social History Tobacco Use Types Packs/Day Years Used Date Smoking Tobacco: Never Smokeless Tobacco: Never Alcohol Use Standard Drinks/Week Comments Never 0 (1 standard drink = 0.6 oz pur e alcohol) Comments Unknown Sex and Gender Information Value Date Recorded Sex Assigned at Not on file Legal Sex Female 11:44 AM CDT Gender Identity Not on file Sexual Orientation Not on file documented as of this encounter Last Filed Vital Signs Vital Sign Reading Time Taken Comments Blood Pressure 165/86 02/21/2025 2:58 PM EYE TECHNICIAN Pulse 87 02/21/2025 2:58 PM EYE TECHNICIAN Temperature 36.1 C (96.9 F) 02/21/2025 2:58 PM EYE TECHNICIAN Respiratory Rate 16 02/21/2025 2:58 PM EYE TECHNICIAN Oxygen Saturation 97% 02/21/2025 2:58 PM EYE TECHNICIAN Inhaled Oxygen Concentration - - Weight 101.7 kg (224 lb 3.2 oz) 02/21/2025 2:58 PM EYE TECHNICIAN Height 162.6 cm (5' 4) 02/21/2025 2:58 PM EYE TECHNICIAN Body Mass Index 38.48 02/21/2025 2:58 PM EYE TECHNICIAN documented in this encounter Progress Notes * Corby Galindo MD - 02/21/2025 6:26 PM CST Hematology-oncology consult Note Requesting Physician Primary Care Physician No primary care provider on file. Problem list There is no problem list on file for this patient. Previous TREATMENT ? Measurable Disease ? Reason for Visit Rosalva Angel is a 89 y.o. female who was referred for consultation for anemia. History of present illness This is a pleasant 89-year-old female with history of type 2 diabetes, hypertension, depression, coronary artery disease status post CT in 2014, degenerative disc disease and GERD referred to me for anemia. Patient has a history of chronic kidney stage III disease. She denies any bleedingincluding melena or hematochezia. She denies being a vegetarian. Denies any previous stomach surgeries. She has lost few pound weight recently. Patient also has a history of breast cancer s/p lumpectomy in 1998 and then radiation therapy treatment. She completed 5 years of tamoxifen. She is currently not taking any iron and vitamin B12 supplements. She is taking multivitamin. Labs from November 2024 showed hemoglobin of 8.9. Creatinine was 1. 5 with GFR of 32%. Platelet count was also low at 77,000. Denies any bleeding and bruising. No other new complaints. Past Medical History Past Medical History: Diagnosis Date Asthma Breast cancer (CMS/HCC) Diabetes mellitus (CMS/HCC) Heart disease Hyperlipidemia Hypertension Surgical History Past Surgical History: Procedure Laterality Date HX BREAST LUMPECTOMY FOR CANCER HX HYSTERECTOMY Medications Current Outpatient Medications Medication Sig Dispense Refill metoprolol succinate (TOPROL XL) 50 mg Extended Release 24 hour tablet Take 50 mg by mouth daily. simvastatin (ZOCOR) 20 mg tablet Take 20 mg by mouth daily at bedtime. valsartan (DIOVAN) 40 mg tablet Take 40 mg by mouth daily. montelukast (SINGULAIR) 10 mg tablet Take 10 mg by mouth daily at bedtime. omeprazole (PriLOSEC) 20 mg Capsule, Delayed Release(E.C.) Take 20 mg by mouth daily. aspirin (ECOTRIN EC) 81 mg Tablet, Delayed Release (E.C.) Take 81 mg by mouth daily. bumetanide (BUMEX) 1 mg tablet Take 1 mg by mouth daily. DULoxetine (CYMBALTA) 30 mg Capsule, Delayed Release(E.C.) Take 30 mg by mouth daily. No current facility-administered medications for this visit. Allergies Allergies Allergen Reactions Iodinated Contrast Media Hives and Unknown Sulfa (Sulfonamide Antibiotics) Hives Benzalkonium Chloride Rash 1+ Cocamide Alyssia Rash 1+ Shellac Rash 1+ Prednisone Unknown Penicillins Cough Immunizations: There is no immunization history on file for this patient. Family History Family History Problem Relation Name Age of Onset No Known Problems Father No Known Problems Mother No Known Problems Sister Social History Social History Tobacco Use Smoking status: Never Smokeless tobacco: Never Substance Use Topics Alcohol use: Never Review of Systems Constitutional: Patient did not mention fever; no night sweats; no anorexia; no weight loss; no fatique NEENT: Patient did not mention headache; no change in vision; no change in hearing; no sore throat;no dysphagia Respiratory: Patient did not mention shortness of breath; no pleuritic chest pain; no cough; no hemoptysis Cardiac: Patient did not mention cardiac-like chest pain; no palpitations; no orthopnea; no PND; noDOE Breasts: Patient did not mention tenderness; no masses GI: Patient did not mention abdominal pain; no nausea; no vomiting; no diarrhea; no hematochezia; no melena : Patient did not mention dysuria; no frequency; no hesitancy; no hematuria EFFICIENCY MINER: Musculosketetal: Patient did not mention bone pain; no arthralgia; no joint swelling; no myalgia; Skin: Patient did not mention pruritis; no rash; no petechiae; no ecchymoses Endocrine: Patient did not mention polydipsia; no polyuria; no unusual weight gain Neuro: Patient did not mention headache; no change in vision; no sensory changes; no muscle weakness; no confusion; no seizures Psych: Patient did not mention anxiety; no depression; Physical Exam Vitals: As per nursing note Constitutional: Well developed, well nourished, no acute distress, non-toxic appearance Teeth and gum. No signs of infection or swelling. Eyes: PERRL, conjunctiva normal HEENT: Atraumatic, external ears normal, nose normal, oropharynx moist, no pharyngeal exudates. no sinus tenderness Neck- normal range of motion, no tenderness, supple Respiratory: No respiratory distress, normal breath sounds, no rales, no wheezing Cardiovascular: Normal rate, normal rhythm, no murmurs, no gallops, no rubs GI: Soft, nondistended, normal bowel sounds, nontender, no splenomegaly, no hepatomegaly, no mass, no rebound, no guarding : No costovertebral angle tenderness Musculoskeletal: No edema, no tenderness, no deformities. Back- no tenderness Integument: Well hydrated, no rash, Digits and nails inspection normal Lymphatic: No lymphadenopathy noted Neurologic: Alert & oriented x 3, CN 2-12 normal, normal motor function, normal sensory function, no focal deficits noted Psychiatric: Speech and behavior appropriate ? labs No results found for this or any previous visit (from the past 24 hours). Labs from November 2024 showed WBC 7 hemoglobin 8.9 MCV 96 platelets 77,000 creatinine 1.5 GFR 32 Pathology ? Imaging & Other Studies Performance Status? Assessment / Plan: ? Chronic anemia and thrombocytopenia. Patient is a pleasant 89-year-old female with history of breast cancer status post lumpectomy in 1998 and then radiation therapy treatment along with history of chronic kidney stage III disease, coronary artery disease status post CT, depression, hypertension, type 2 diabetes, degenerative disc disease and GERD. She denies any bleeding and bruising.She denies being a vegetarian. She has a history of chronic kidney stage III disease. I have reviewed the labs with the patient and discussed the differential diagnosis of her anemia. Likely her anemia is secondary to chronic kidney disease. With the low platelet count there is a possibility of underlying bone marrow disorder like MDS given the previous history of radiation therapy. I will start with a blood test including CBC, CMP, iron profile, vitamin B12, folic acid and serum protein electrophoresis. I will also order abdominal ultrasound to rule out any hepatosplenomegaly. No need for bone marrow biopsy testing at this time. Follow-up with repeat labs in 2 weeks. I have answered all the questions to patient's satisfaction. Chronic kidney stage III disease. Patient will follow-up with Dr. Rafy Norman. Hypertension. Patient is on valsartan and metoprolol. GERD. She is on omeprazole. Thank you very much for allowing me to participate in Rosalva Angel's evaluation and management. Please feel free to contact if I can be of any further assistance in your patient???s care requiring hematology or oncology evaluation. Sincerely, ? ? Corby Galindo M.D. cell TOBACCO COUNSELING She is not a tobacco/nicotine user. Corby Galindo MD ,02/21/2025 6:26 PM ? Total time spent 60 minutes, two third of the total time spent counseling patient [id number]. CC:? TECHNICIAN documented in this encounter Plan of Treatment Upcoming Encounters Date Type Department Care Team (Late st Contact Info) Description 03/28/2025 4:30 PM EYE TECHNICIAN Telephone Check Up [facility] Oncology and Hematology [facility] [address] [facility] [address] [place] [address] Corby Galindo MD [address] [facility] [address] [place] [address] Scheduled Orders Name Type Priority Associated Diagnoses Orde r Schedule CBC WITH DIFFERENTIAL Lab Stat Chronic anemia Expected: 02/21/2025, Expires: 02/21/2026 COMPREHENSIVE METABOLIC PANEL Lab Stat Chronic anemia Expected: 02/21/2025, Expires: 02/21/2026 FERRITIN Lab Routine Chronic anemia Expected: 02/21/2025, Expires: 02/21/2026 IRON, TIBC, AND PERCENT SATURATION Lab Routine Chronic anemia Expected: 02/21/2025, Expires: 02/21/2026 METHYLMALONIC ACID Lab Routine Chronic anemia Expected: 02/21/2025, Expires: 02/21/2026 TRANSFERRIN RECEPTOR TFR SOLUBLE Lab Routine Chronic anemia Expected: 02/21/2025, Expires: 02/21/2026 VITAMIN B12 AND FOLATE Lab Routine Chronic anemia Expected: 02/21/2025, Expires: 02/21/2026 PROTEIN ELECTROPHORESIS W/REFLEX,SERUM Lab Routine Chronic anemia Expected: 02/21/2025, Expires: 02/21/2026 US ABDOMEN COMPLETE Imaging Routine Other secondary thrombocytopenia 1 Occurrences starting 02/21/2025 until 02/21/2026 documented as of this encounter Visit Diagnoses Diagnosis Chronic anemia- Primary Anemia, unspecified Other secondary thrombocytopenia documented in this encounter
[2025-02-21 16:34] LABS: Hematocrit 28.8 % (37.0-47.0); Hemoglobin 8.5 g/dL (12.0-15.0); Immature Platelet Fraction Pct 16.1 % (0.9-11.2); Mean Corpuscular HGB Conc 29.5 g/dl (32-36); Mean Corpuscular Hemoglobin 26.6 pg (26-34); Mean Corpuscular Volume 90.3 fl (80-100); Platelet Count Result 68 k/mm3 (150-375); Red Blood Count 3.19 M/mm3 (4.2-5.4); White Blood Count 7.7 K/mm3 (4.5-10.0)
[2025-02-21 17:01] LABS: Iron 185 ug/dL (37-170)
[2025-02-21 17:02] LABS: Alanine Aminotransferase 29 U/L (6-35); Albumin Level 4.1 g/dL (3.5-5.1); Alkaline Phosphatase 67 U/L (38-126); Anion Gap 6 mmol/L (4-12); Aspartate Amino Transferase 31 U/L (14-36); Bilirubin,Total 0.5 mg/dL (0.2-1.3); Blood Urea Nitrogen 26 mg/dL (7-17); Calcium 10.0 mg/dL (8.4-10.2); Carbon Dioxide 22 mmol/L (22-30); Chloride 109 mmol/L (98-107); Estimated Glomerular Filt Rate 34; Glucose 132 mg/dL (65-110); Potassium 5.1 mmol/L (3.4-5.0); Sodium 137 mmol/L (137-145); Total Protein 7.0 g/dL (6.3-8.2)
[2025-02-21 17:13] LABS: Anisocytosis 1+; Band Neutrophils Percent 5 % (0-6); Hypochromasia 1+; Lymphocytes Absolute Manual 1.84 K/mm3 (1.1-4.5); Lymphocytes Percent Manual 24 % (18-44); Monocytes Absolute Manual 1.46 K/mm3 (0.1-0.90); Monocytes Percent Manual 19 % (3-9); Neutrophils Absolute Manual 4.38 K/mm3 (1.3-6.7); Neutrophils Percent Manual 52 % (46-73); Schistocytes None Seen; Total Cells Counted 100
[2025-02-21 17:46] LABS: Ferritin 24.10 ng/mL (11.1-264)
[2025-02-21 17:52] LABS: Percent Iron Saturation 37 % (20-50)
[2025-02-21 17:59] LABS: Vitamin B12 916.0 pg/mL (239-931)
--- OUTSIDE RECORDS SUMMARY | 2025-02-21 20:51 | XMS_ITS | Clinical Summary ---
Author Organization [facility] Cora Mckeetalia Address [address] [place] [address] Care Team Providers Care Environmental Sustainability Manager Name Role Phone Unavailable Primary Care Provider Unavailabl e Allergies Active Allergy Reactions Criticality Noted Date Comments Benzalkonium Chloride Rash Medium 06/28/2023 1+ Cocamide Alyssia Rash Medium 06/28/2023 1+ Iodinated Contrast Media Hives,Unknown High 02/19/20 11 Penicillins Cough Low 02/21/2025 Prednisone Unknown 03/23/2019 Shellac Rash Medium 06/28/2023 1+ Sulfa (Sulfonamide Antibiotics) Hives High 08/2019 Medications bumetanide (BUMEX) 1 mg tablet Take 1 mg by mouth daily. Active DULoxetine (CYMBALTA) 30 mg Capsule, Delayed Release(E.C.) Take 30 mg by mouth daily. Active metoprolol succinate (TOPROL XL) 50 mg Extended Release 24 hour tablet Take 50 mg by mouth daily. 02/02/2025 Active simvastatin (ZOCOR) 20 mg tablet Take 20 mg by mouth daily at bedtime. 02/05/2025 Active valsartan (DIOVAN) 40 mg tablet Take 40 mg by mouth daily. 02/03/2025 Active montelukast (SINGULAIR) 10 mg tablet Take 10 mg by mouth daily at bedtime. 02/03/2025 Active omeprazole (PriLOSEC) 20 mg Capsule, Delayed Release(E.C.) Take 20 mg by mouth daily. Active aspirin (ECOTRIN EC) 81 mg Tablet, Delayed Release (E.C.) Take 81 mg by mouth daily. Active Active Problems No known active problems Encounters Date Type Department Care Team Description 02/21/2025 3:00 PM COMPUTER LAB PARA PROFESSIONAL Office Visit [facility] Oncology and Hematology - [place] [address] [place] [address] Corby Galindo MD Chronic anemia (Primary Dx); Other secondary thrombocytopenia from Last 3 Months Family History Medical History Relation Name Comments No Known Problems Father No Known Problems Mother No Known Problems Sister Relation Name Status Comments Father Mother Sister Alive Social History Tobacco Use Types Packs/Day Years [...] Comments Blood Pressure 165/86 02/21/2025 2:58 PM COMPUTER LAB PARA PROFESSIONAL Pulse 87 02/21/2025 2:58 PM COMPUTER LAB PARA PROFESSIONAL Temperature 36.1 C (96.9 F) 02/21/2025 2:58 PM COMPUTER LAB PARA PROFESSIONAL Respiratory Rate 16 02/21/2025 2:58 PM COMPUTER LAB PARA PROFESSIONAL Oxygen Saturation 97% 02/21/2025 2:58 PM COMPUTER LAB PARA PROFESSIONAL Inhaled Oxygen Concentration - - Weight 101.7 kg (224 lb 3.2 oz) 02/21/2025 2:58 PM COMPUTER LAB PARA PROFESSIONAL Height 162.6 cm (5' 4) 02/21/2025 2:58 PM COMPUTER LAB PARA PROFESSIONAL Body Mass Index 38.48 02/21/2025 2:58 PM COMPUTER LAB PARA PROFESSIONAL Plan of Treatment Upcoming Encounters Date Type Department Care Team (Late st Contact Info) Description 03/28/2025 4:30 PM COMPUTER LAB PARA PROFESSIONAL Telephone Check Up [facility] Oncology and Hematology - [place] [address] [place] [address] Corby Galindo MD [address] [place] [address] Health Maintenance Due Date Last Done Comments Traditional Medicare (ACO) A nnual Wellness Visit 02/11/1956 ZOSTER VACCINE (1 of 2) 1987 OSTEOPOROSIS SCREENING 2002 RSV VACCINE (60+ or ) (1 - 1-dose 75+ series) 02/11/2012 DTAP/TDAP/TD VACCINES (2 - T d or Tdap) 07/14/2021 07/15/2011 INFLUENZA VACCINE (#1) 2024 , 12/24/2018, 12/24/2018, Additional history exists PNEUMOCOCCAL VACCINE 50+ YEARS Completed 0 03/24/2019, 03/24/2018, 12/29/2013, Additional history exists Insurance MEDICARE PART A AND B [facility] [id number]
--- OUTSIDE RECORDS SUMMARY | 2025-02-21 20:51 | XMS_ITS | Encounter Summary ---
Author Organization [facility] Dinor[facility] utions Address [address] [place] [address] Phone Care Team Providers Care Manager Food Beverage Name Role Phone Isacc Lee MD Primary Care Provider [phone] Encounter Details Date Type Department Care Team (Late st Contact Info) Description 03/04/2020 [facility] Nephrology and Hypertension [address] [facility], [address] [address] Rafy Norman MD [address] [facility], [address] [place] [address] Social History Tobacco Use Types Packs/Day Years [...] on filedocumented in this encounter Care Teams Manager Food Beverage Relationship Specialty Start Date End Date Isacc Lee MD [address] [place] [address] PCP - General Internal Medicine 07/31/20 documented as of this encounter
--- OUTSIDE RECORDS SUMMARY | 2025-02-21 20:51 | XMS_ITS | Clinical Summary ---
Author Organization [facility] Address [facility] [place] [address] Care Team Providers Care Distribution Estimator Name Role Phone Unavailable Primary Care Provider [...]
--- OUTSIDE RECORDS SUMMARY | 2025-02-21 20:52 | XMS_ITS | Clinical Summary ---
Author Organization [facility] [address] Address [address] [place] [address] Care Team Providers Care Electrophonic Engineer Name Role Phone MercadoMary RAMONA Primary Care Provider [phone] Allergies Active Allergy Reactions Criticality Noted Date [...] every day in the evening 0 0 03/19/19 16 Active aspirin (ASPIR-81) 81 mg tablet take 1 Tablet by oral route every day 0 0 03/19/19 16 Active omeprazole OTC (PriLOSEC OTC) 20 mg EC tablet Take 1 tablet (20 mg total) by mouth every morning Active multivitamin capsule Take 1 capsule by mouth daily Active glucosamine-ch ondroitin 500-400 mg tablet Take 1 tablet by mouth 2 (two) times a day Active coenzyme Q10 100 mg capsule Take 1 capsule (100 mg total) by mouth every morning Active lutein-zeaxant hin 25-5 mg capsule Take 1 tablet by mouth every morning. Active valsartan (DIOVAN) 40 mg tablet TAKE 1 TABLET BY MOUTH EVERY DAY 90 tablet 2 12/09/[address] (CYMBALTA) 30 mg capsule Take 1 capsule (30 mg total) by mouth daily Active ketoconazole (NIZORAL) 2 % cream Apply topically daily Between toes 60 g 11 04/14/19 24 Active bumetanide (BUMEX) 1 mg tablet Take 1 tablet (1 mg total) by mouth daily Active albuterol HFA (PROVENTIL HFA,VENTOLIN HFA,PROAIR HFA) 90 mcg/actuation inhaler INHALE 1 TO 2 PUFFS BY MOUTH EVERY 4 HOURS NEEDED FOR WHEEZE OR FOR SHORTNESS OF BREATH 04/06/19 25 Active metoprolol XL (TOPROL-XL) 50 mg extended release tablet TAKE 1 TABLET BY MOUTH EVERY DAY 90 tablet 1 02/03/20 25 Active simvastatin (ZOCOR) 20 mg tablet TAKE 1 TABLET BY MOUTH EVERYDAY AT BEDTIME 90 tablet 02/06/20 25 Active metoprolol XL (TOPROL-XL) 50 mg extended release tablet TAKE 1 TABLET BY MOUTH EVERY DAY 90 tablet 1 08/09/19 25 025 Discontinued simvastatin (ZOCOR) 20 mg tablet TAKE 1 TABLET BY MOUTH EVERYDAY AT BEDTIME 90 tablet 11/02/19 25 025 Discontinued Active Problems Problem Noted Date Diagnosed Date [...] treat. She is scheduled with an outside food preparation worker on 08/06. Will place referral with Dermatology at [facility] for possible sooner appointment. - In [...] 10/01/2016 S/P coronary artery stent placement 10/01/2016 ID (myocardial infarction) 03/15/2014 Encounters Date Type Department Care Team Description 12/28/2024 11:15 AM CDT Office Visit [facility] Cardiology [address] [place] [address] Narciso Juan MD S/P coronary artery stent placement (Primary Dx); Coronary artery disease involving [place] coronary artery of [place] heart without angina pectoris from Last 3 [...] diabetes mellitus Hypothyroidism Asthma Hypertension Stone, kidney ID (myocardial infarction) (HCC) 2015 Cellulitis Family History [...] on file Legal Sex Female 7:39 PM WOOD HEEL FINISHER Gender Identity Not on file Sexual Orientation [...] 03/02/2021, 021 Medical Devices Implanted Type Area Business Applications Specialist Device Identifier Shelf Expiration Date Model / Serial / Lot Stent Ureteral Contour Percuflex Hydroplus Pigtail Curve L30 Cm Od6 Fr Taper Tip Bladder Tra Low Profile Large Inner Lumen Latex Free - [id number] Implanted:Qty: 1 on 04/29/2017 by Radha Mcneil MD at [facility] Stent Right: [employer] [place] 2020 [id number] / / [id number] Procedures Procedure Name Priority Date/Time Associated Diagnosis Comments BASIC METABOLIC PANEL Routine 03/31/2022 9:15 AM WOOD HEEL FINISHER Foot infection HEMOGLOBIN A1C Routine 04/16/2017 10:04 AM WOOD HEEL FINISHER from Last 3 Months or Most Recently Relevant to Health Maintenance Results * (ABNORMAL) Basic metabolic panel (03/31/2022 9:15 AM WOOD HEEL FINISHER) Glucose 149(H) 65 - 99 mg/dL [facility] [...] [facility] Blood 03/31/2022 9:15 AM WOOD HEEL FINISHER 03/31/2022 9:15 AM WOOD HEEL FINISHER us Willis JADE LAB BLOOD ORDERABLES F inal Result [facility] [address] [place] [address] * Hemoglobin A1c (04/16/2017 10:04 AM WOOD HEEL FINISHER) Hgb A1C 5.3 4.0 - 6.0 % [facility] Blood specimen (specimen) 04/16/2017 10:04 AM WOOD HEEL FINISHER 04/16/2017 10:57 AM WOOD HEEL FINISHER Narrative [facility] - 04/16/2017 11:27 AM WOOD HEEL FINISHER us Radha Mcneil MD LAB BLOOD ORDERABLES Final Re sult [facility] [address] Department [place] [address] from Last 3 Months or Most Recently Relevant to Health Maintenance Insurance [facility] MEDICARE MEDIC[place] [id number] MEDICARE [facility] Advance Directives For more information, please contact: [phone] Documents on File Type Date Recorded Patient Dairy Farmworker Expl anation ADVANCE DIRECTIVE 04/27/2017 5:45 AM ADVANCE DIRECTIVE 04/27/2017 Advance Di rective Checklist * Full Code (Latest Code Status on File) Date Activated Date Inactivated Comments 04/27/2017 6:44 PM 04/30/2017 2:14 PM Care Teams Electrophonic Engineer Relationship Specialty Start Date End Date Mary Mercado NP [address] [facility] [address] [place] [address] PCP - General Family Medicine 12/28/24
--- OUTSIDE RECORDS SUMMARY | 2025-02-21 20:52 | XMS_ITS | Clinical Summary ---
Author Organization [facility] sierra Address [address] [place] [address] Phone Care Team Providers Care Slip Presser Name Role Phone Isacc Lee MD Primary Care Provider [phone] Allergies Active Allergy Reactions Criticality Noted Date [...] hypertension 09/20/2017 Atherosclerotic heart diseas e of [place] coronary artery without angina pectoris 09/20/2017 Hypercalcemia 09/20/2017 Degeneration of lumbar intervertebral disc 04/16 Gastroesophageal reflux disease 04/16/2017 Hypothyroidism 04/16/2017 History of placement of stent for coronary arter y disease 10/01/2016 Resolved Problems Problem Noted Date Diagnosed Date Resolved Date Type 2 diabetes mellitus without complication 09/21/19 18 02/01/2020 Immunizations Immunization Administration Dates Next Due Fluzone High-Dose 11/05/2019 Influenza Split High Dose Pr eservative Free IM 12/24/2018,10/21/2017,11/04/2015,11/27,12/08/2013 Influenza TIV (IM) 12/29/2020,12/24/2018, 010 Influenza, split virus, trivalent, PF 12/14/2012 Pneumococcal Conjugate 13-Valent 03/24/2018 Pneumococcal Polysaccharide 03/24/2019,1 [...] 03/24/2018, 12/29/2013, Additional history exists Insurance MEDICARE [facility] Care Teams Slip Presser Relationship Specialty Start Date End Date Isacc Lee MD [address] [place] [id number] PCP - General Internal Medicine 07/31/20
[2025-02-22 13:09] LABS: Albumin 3.3 g/dL (2.9-4.4); Alpha-1-Globulin 0.3 g/dL (0.0-0.4); Alpha-2-Globulin 1.0 g/dL (0.4-1.0); Gamma Globulin 0.7 g/dL (0.4-1.8)
== END 2025-02-21 15:54 | disposition home or self-care (01) ==
LOC: ANHLAB 15:54
PROVIDERS: PCP Nurse Practitioner Family; Visit Provider Internal Medicine Hematology & Oncology
DX: D64.9 Anemia, unspecified (principal)
CPT/HCPCS: 36415; 80053; 82607; 82728; 82746; 83540; 83550; 83921; 84155; 84165; 84238; 85025; 85055